=== PATIENT | female | born 2000 | race Caucasian/White ===

== ENCOUNTER 2020-06-06 05:02 | Emergency (ER) | payer OTHER ==
--- NOTE | 2020-06-06 05:28 | EDM.PDOC ---
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 She has been vomiting for 2 days and started Zofran by her doctor. She is 6 weeks and has had an ultrasound demonstrating it is intrauterine. The patient took her Zofran at 3 AM today but continues to vomit despite that. The ODT formulation. Patient denies orthostatic symptoms decreased urine output or lightheadedness. Review of systems: As per history of present illness and below otherwise all systems reviewed and negative. Past medical history: As per history of present illness and as reviewed below otherwise noncontributory. Surgical history: As per history of present illness and as reviewed below otherwise noncontributory. Social history: No reported history of drug or alcohol abuse. Family history: As per history of present illness and as reviewed below otherwise noncontributory. Physical exam: Constitutional - well developed, well-nourished and in no acute distress HEENT - normocephalic, no evidence of trauma - external nose and mouth normal - no mass in neck and no JVD - mucosae moist EYES - full EOM, PERRL, no icterus - no evidence of inflammation, injection, or drainage Respiratory - no respiratory distress, equal bilateral expansion, lungs clear to auscultation and no abnormal lung sounds Cardiovascular - Regular Rhythm with S1 and S2 appreciated and no murmur, gallop or rub. GI - abdomen soft without distension or organomegaly - normal bowel sounds - no guard or rebound Musculoskeletal no gross deformity of long bones or joints - no tenderness, swelling or edema Neurologic - Alert and oriented times four - CN II-XII grossly intact - motor sensory and coordination symmetrically normal Psychiatric - appropriate mood and affect with normal thought content Hematologic - No petechiae or purpura - mucosa appropriate color and sclera not pale - normal nail bed color and refill Integument - no rash or evidence of trauma - normal turgor Diagnostics: [] Therapeutics: [] Impression: [] Plan: [] Definitive disposition and diagnosis as appropriate pending reevaluation and review of above. 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: Psychiatric History: Reports: Depression Hematologic History: Reports: None Immunologic History: Reports: None Oncologic (Cancer) History: Reports: None Dermatologic History: Reports: None - Infectious Disease History Infectious Disease History: Reports: Mononucleosis - Past Surgical History Head Surgeries/Procedures: Reports: None HEENT Surgical History: Reports: Tonsillectomy Musculoskeletal Surgical History: Reports: Arthroscopic Knee Social & Family History - Tobacco Use Tobacco Use Status *Q: Never Tobacco User - Recreational Drug Use Recreational Drug Use: No ED ROS GENERAL - Review of Systems Review Of Systems: Comprehensive ROS is negative, except as noted in HPI. ED EXAM, GENERAL - Physical Exam Exam: See Below Free Text/Narrative:: My physical exam is in the HPI Course - Vital Signs Text/Narrative:: 0616 hrs. the patient felt better and tried p.o. Her labs indicate dehydration. She does have some nitrite and leuk esterase so a culture will be sent on the urine to be followed by her doctor. 40 4 AM the patient took p.o. she feels better after liter fluids and she will be discharged in satisfactory condition. Last Recorded V/S: Last Vital Signs Temp 36.0 C L 06/06/20 05:17 Pulse 100 06/06/20 05:17 Resp 18 06/06/20 05:17 BP 129/74 06/06/20 05:17 Pulse Ox 96 06/06/20 05:17 - Orders/Labs/Meds Orders: Active Orders 24 hr Category Date Time Status CULTURE URINE [RM] Stat Lab 06/06/20 06:09 Ordered Sodium Chloride 0.9% [Saline Flush] Med 06/06/20 05:33 Active 10 ml FLUSH ASDIRECTED PRN Sodium Chloride 0.9% [Saline Flush] Med 06/06/20 05:33 Active 2.5 ml FLUSH ASDIRECTED PRN Saline Lock Insert [OM.PC] Stat Oth 06/06/20 05:33 Ordered Medication Orders Sodium Chloride (Saline Flush) 10 ml FLUSH ASDIRECTED PRN PRN Reason: Keep Vein Open Sodium Chloride (Saline Flush) 2.5 ml FLUSH ASDIRECTED PRN PRN Reason: Keep Vein Open Labs: Laboratory Tests 06/06/20 Range/Units 05:14 Urine Color YELLOW Urine Appearance SLT CLOUDY Urine pH 5.5 (5.0-8.0) Ur Specific [place] >= 1.030 (1.001-1.035) Urine Protein NEGATIVE (NEGATIVE) mg/dL Urine Glucose (UA) NEGATIVE (NEGATIVE) mg/dL Urine Ketones 15 H (NEGATIVE) mg/dL Urine Occult Blood NEGATIVE (NEGATIVE) Urine Nitrite POSITIVE H (NEGATIVE) Urine Bilirubin SMALL H (NEGATIVE) Urine Ictotest NEGATIVE Urine Urobilinogen 0.2 (<2.0) EU/dL Ur Leukocyte Esterase NEGATIVE (NEGATIVE) Urine RBC 0-1 (0-2/HPF) Urine WBC 4-7 (0-5/HPF) Ur Epithelial Cells MODERATE (NONE-FEW) Amorphous Sediment LIGHT (NEGATIVE) Urine Bacteria FEW (NEGATIVE) Urine Mucus LIGHT (NONE-MOD) Meds: Medications Generic Name Dose Route Start Last Admin Trade Name Freq PRN Reason Stop Dose Admin Sodium Chloride 10 ml 06/06/20 05:33 Saline Flush FLUSH ASDIRECTED PRN Keep Vein Open Sodium Chloride 2.5 ml 06/06/20 05:33 Saline Flush FLUSH ASDIRECTED PRN Keep Vein Open Discontinued Medications Generic Name Dose Route Start Last Admin Trade Name Freq PRN Reason Stop Dose Admin Sodium Chloride 1,000 mls @ 999 mls/hr 06/06/20 05:34 06/06/20 05:47 Normal Saline IV 06/06/20 06:34 999 mls/hr .BOLUS ONE Administration Metoclopramide HCl 10 mg 06/06/20 05:33 06/06/20 05:48 Reglan IVPUSH 06/06/20 05:34 10 mg ONETIME ONE Administration Departure - Departure Time of Disposition: 06:45 Disposition: Home, Self-Care 01 Condition: Good Clinical Impression: Dehydration, Hyperemesis gravidarum - Discharge Information Prescriptions: Metoclopramide HCl [Reglan] 10 mg PO Q8HR PRN #14 tablet PRN Reason: Nausea/Vomiting Instructions: Hyperemesis Gravidarum, Dehydration, Adult, [id number] Referrals: PCP,None [Primary Care Provider] - Forms: ED Department Discharge Additional Instructions: There was a suggestion you might have a urinary tract infection. A culture was sent to be followed by your doctor. [facility] [address] [address] [facility] [address] [place] [id number] The following information is given to patients seen in the emergency department who are being discharged to home. This information is to outline your options for follow-up care. We provide all patients seen in our emergency department with a follow-up referral. The need for follow-up, as well as the timing and circumstances, are variable depending upon the specifics of your emergency department visit. If you don't have a primary care physician on staff, we will provide you with a referral. We always advise you to contact your personal physician following an emergency department visit to inform them of the circumstance of the visit and for follow-up with them and/or the need for any referrals to a consulting specialist. The emergency department will also refer you to a specialist when appropriate. This referral assures that you have the opportunity for follow-up care with a specialist. All of these measure are taken in an effort to provide you with optimal care, which includes your follow-up. Under all circumstances we always encourage you to contact your private physician who remains a resource for coordinating your care. When calling for follow-up care, please make the office aware that this follow-up is from your recent emergency room visit. If for any reason you are refused follow-up, please contact the [facility] Emergency Department at and asked to speak to the emergency department charge nurse. Sepsis Event Note (ED) - Evaluation Sepsis Screening Result: No Definite Risk - Focused Exam Vital Signs: Vital Signs Temp Pulse Resp BP Pulse Ox 06/06/20 05:17 36.0 C L 100 18 129/74 96 - My Orders Last 24 Hours: My Active Orders 06/06/20 05:33 Sodium Chloride 0.9% [Saline Flush] 10 ml FLUSH ASDIRECTED PRN Sodium Chloride 0.9% [Saline Flush] 2.5 ml FLUSH ASDIRECTED PRN Saline Lock Insert [OM.PC] Stat 06/06/20 06:09 CULTURE URINE [RM] Stat - Assessment/Plan Last 24 Hours: My Active Orders 06/06/20 05:33 Sodium Chloride 0.9% [Saline Flush] 10 ml FLUSH ASDIRECTED PRN Sodium Chloride 0.9% [Saline Flush] 2.5 ml FLUSH ASDIRECTED PRN Saline Lock Insert [OM.PC] Stat 06/06/20 06:09 CULTURE URINE [RM] Stat
[2020-06-06] MEDS ORDERED: Sodium Chloride 0.9% 10 ML Syringe FLUSH PRN (05:33)
[2020-06-06] MEDS ORDERED: Metoclopramide 10 MG/2 ML SDV IVPUSH ONE (05:33)
[2020-06-06] MEDS ORDERED: Sodium Chloride 0.9% 2.5 ML Syringe FLUSH PRN (05:33)
[2020-06-06] MEDS ORDERED: Sodium Chloride 0.9% 1,000 ML IV ONE (05:34)
== END 2020-06-06 06:53 | disposition home or self-care (01) ==
LOC: MW.ED 05:02
DX: O21.1 Hyperemesis gravidarum with metabolic disturbance (principal); E86.0 Dehydration; Z88.0 Allergy status to penicillin; Z3A.01 Less than 8 weeks gestation of pregnancy
CPT/HCPCS: 81001; 87086; 96374; 99284; J2765; J7030; 99283

== ENCOUNTER 2021-01-13 01:07 | Inpatient (IN) | payer OTHER ==
[2021-01-13] MEDS ORDERED: Lidocaine 1% 50 ML MDV INJECT PRN (01:29)
[2021-01-13] MEDS ORDERED: Nalbuphine 10 MG/1 ML Vial IVPUSH PRN (01:29)
[2021-01-13] MEDS ORDERED: Sodium Chloride 0.9% 10 ML Syringe FLUSH PRN (01:29)
[2021-01-13] MEDS ORDERED: Sodium Chloride 0.9% 10 ML SDV IV PRN (01:29)
[2021-01-13] MEDS ORDERED: Sodium Chloride 0.9% 2.5 ML Syringe FLUSH PRN (01:29)
[2021-01-13] MEDS ORDERED: Butorphanol 1 MG/ML SDV IVPUSH PRN (01:29)
[2021-01-13] MEDS ORDERED: Water For Irrigation,Sterile 1,000 ML Container IRR PRN (01:29)
[2021-01-13] MEDS ORDERED: Carboprost Tromethamine 250 MCG/1 ML Amp IM PRN (01:29)
[2021-01-13] MEDS ORDERED: Misoprostol 200 MCG Tab PO PRN (01:29)
[2021-01-13] MEDS ORDERED: Methylergonovine 0.2 MG/1 ML Amp IM PRN (01:29)
[2021-01-13] MEDS ORDERED: Tranexamic Acid 1,000 MG in Sodium Chloride 0.9% 100 ML IV PRN (01:29)
[2021-01-13] MEDS ORDERED: Oxytocin/0.9 % Sodium Chloride 30 UNIT/500 ML BAG IV SCH ×2 (01:30→01:45)
[2021-01-13] MEDS ORDERED: Misoprostol 25 MCG (1/4 of 100 MCG) Tab VAG PRN (01:31)
[2021-01-13] MEDS ORDERED: Terbutaline 1 MG/ML SDV SUBCUT PRN (01:31)
[2021-01-13] MEDS: Misoprostol 25 MCG (1/4 of 100 MCG) Tab PO SCH ×5 (02:08→23:08)
[2021-01-13] MEDS: Misoprostol 25 MCG (1/4 of 100 MCG) Tab VAG PRN ×2 (06:18→11:16)
[2021-01-13] MEDS ORDERED: Ondansetron 4 MG/2 ML SDV IVPUSH PRN (08:38)
[2021-01-13] MEDS: Ondansetron 4 MG/2 ML SDV ONE (08:45)
[2021-01-13] MEDS: Lactated Ringers 1,000 ML IV SCH ×3 (11:15→18:30)
--- NOTE | 2021-01-13 12:32 | PCM.LDHP ---
L&D History of Present Illness - General Date of Service: 01/13/21 Admit Problem/Dx: Patient Status Order with Admit Dx/Problem 01/13/21 01:00 Patient Status [ADT] Routine Admission Diagnosis/Problem Admission Diagnosis/Problem 01/13/21 12:26 Peggy is a 21 yo at 39+3 weeks gestation (AYDE(US) 01/17/2021) that presents to L&D today for primary elective IOL. Patient seen in office 01/11/2021, RBAs of IOL and mode of cervical ripening (cytotec) discussed in office, consents signed. Reports adequate movement. Denies naomy vaginal bleeding at this time. A pos, RI, GBS neg. EFW via [place] 7+ lbs. Pertinent medical history includes: chlamydia (CRISTAL and 36-wk screen neg); obesity; anxiety, depression. Ax: penicillins. Medications: PNV. Patient has no other complaints or concerns at this time and desires to continue with elective IOL. Source of Information: Patient History Limitations: Reports: No Limitations - History of Present Illness Pain Score: 8 Improves with: Reports: None Worsens with: Reports: None Associated Symptoms: Reports: N - Related Data Allergies/Adverse Reactions: Allergies Allergy/AdvReac Type Severity Reaction Status Date / Time Penicillins Allergy Other Verified 01/13/21 01:28 Home Medications: Home Meds Metoclopramide HCl [Reglan] 10 mg PO Q8HR PRN #14 tablet 06/06/20 [Rx] Ondansetron [Zofran ODT] 4 mg PO ASDIRECTED 06/06/20 [History] Past Medical History - Past Health History Medical/Surgical History: Denies Medical/Surgical History Cardiovascular History: Reports: None Respiratory History: Reports: None Gastrointestinal History: Reports: None 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 Psychiatric History: Reports: Depression Hematologic History: Reports: None Immunologic History: Reports: None Oncologic (Cancer) History: Reports: None Dermatologic History: Reports: None - Infectious Disease History Infectious Disease History: Reports: Mononucleosis - Past Surgical History Head Surgeries/Procedures: Reports: None HEENT Surgical History: Reports: Tonsillectomy Musculoskeletal Surgical History: Reports: Arthroscopic Knee Social & Family History - Tobacco Use Tobacco Use Status *Q: Never Tobacco User Second Hand Smoke Exposure: No - Caffeine Use Caffeine Use: Reports: Soda - Recreational Drug Use Recreational Drug Use: No H&P Review of Systems - Review of Systems: Review Of Systems: Comprehensive ROS is negative, except as noted in HPI. General: Reports: No Symptoms HEENT: Reports: No Symptoms Pulmonary: Reports: No Symptoms Cardiovascular: Reports: No Symptoms Gastrointestinal: Reports: No Symptoms Genitourinary: Reports: No Symptoms Musculoskeletal: Reports: No Symptoms Skin: Reports: No Symptoms Psychiatric: Reports: No Symptoms Neurological: Reports: No Symptoms Hematologic/Lymphatic: Reports: No Symptoms Immunologic: Reports: No Symptoms L&D Exam - Exam Exam: See Below - Vital Signs Vital Signs: VSS/afebrile. See flowsheet. Weight: 208 lb - OB Specific Fundal Height In cm: 39 Contraction Duration (sec): 60-90 Contraction Frequency (min): 1-3 Contraction Intensity: Moderate Movement: Active Heart Tones: Present Heart Tones per Min: 145 Heart Rate (FHR) Variability: Moderate (6-25 bmp) Presentation: Vertex - Saucedo Score Saucedo Score Cervix Position: Posterior Saucedo Score Consistency: Soft Saucedo Score Effacement: 31-50% Saucedo Score Dilation: 1-2 cm Saucedo Score 's Station: -3 Saucedo Score Total: 4 - Exam General: Alert, Oriented, Cooperative, Mild Distress HEENT: Conjunctiva Clear, Hearing Intact, Mucosa Moist & Gerlach, Posterior Pharynx Clear, TMs Clear, PERRLA Neck: Supple, Trachea Midline Lungs: Clear to Auscultation, Normal Respiratory Effort Cardiovascular: Regular Rate, Regular Rhythm GI/Abdominal Exam: Normal Bowel Sounds, Soft, Non-Tender, No Organomegaly, No Distention Rectal Exam: Deferred Genitourinary: Normal external exam, Normal bimanual exam, Normal speculum exam, Enlarged uterus (Gravid uterus) Back Exam: Normal Inspection, Full Range of Motion Extremities: Normal Inspection, Normal Range of Motion, Non-Tender, No Pedal Edema, Normal Capillary Refill Skin: Warm, Dry, Intact Neurological: Cranial Nerves Intact, Reflexes Equal Bilateral Psychiatric: Alert, Normal Affect, Normal Mood - Patient Data Lab Results Last 24 hrs: Laboratory Results - last 24 hr 01/13/21 01/13/21 01/13/21 Range/Units 01:25 01:25 01:30 WBC 9.40 (4.0-11.0) K/uL RBC 3.83 L (4.30-5.90) M/uL Hgb 11.8 L (12.0-16.0) g/dL Hct 34.8 L (36.0-46.0) % MCV 90.9 (80.0-98.0) fL MCH 30.8 (27.0-32.0) pg MCHC 33.9 (31.0-37.0) g/dL RDW Std Deviation 42.7 (28.0-62.0) fl RDW Coeff of Cedric 13 (11.0-15.0) % Plt Count 168 (150-400) K/uL MPV 12.10 H (7.40-12.00) fL SARS-CoV-2 RNA (ANJALI) NEGATIVE (NEGATIVE) Blood Type A POSITIVE Antibody Screen NEGATIVE Result Diagrams: 01/13/21 01:25 - Problem List (1) Encounter for elective induction of labor SNOMED Code(s): 121841817 ICD Code: Z34.90 - ENCNTR FOR SUPRVSN OF NORMAL , UNSP, UNSP TRIMESTER Status: Acute Current Visit: Yes Problem List Initiated/Reviewed/Updated: Yes Orders Last 24hrs: Active Orders 24 hr Category Date Time Status Patient Status [ADT] Routine ADT 01/13/21 01:00 Active Communication Order [RC] ASDIRECTED Care 01/13/21 01:32 Active Communication Order [RC] ASDIRECTED Care 01/13/21 01:32 Active Heart Tones [RC] CONTINUOUS Care 01/13/21 01:29 Active Non Stress Test [RC] PER UNIT ROUTINE Care 01/13/21 01:29 Active May Shower [RC] ASDIRECTED Care 01/13/21 01:29 Active Notify Provider [RC] PRN Care 01/13/21 01:29 Active Notify Provider [RC] PRN Care 01/13/21 01:32 Active Notify Provider [RC] PRN Care 01/13/21 01:32 Active Notify Provider [RC] STAT Care 01/13/21 01:32 Active Up ad Cherelle [RC] ASDIRECTED Care 01/13/21 01:29 Active Vaginal Exam [RC] PRN Care 01/13/21 01:29 Active Vaginal Exam [RC] PRN Care 01/13/21 01:32 Active Vital Signs [RC] PER UNIT ROUTINE Care 01/13/21 01:29 Active RPR (SYPHILIS SERO) W/ RFLX [REF] Routine Lab 01/13/21 01:25 Received Butorphanol [Stadol] Med 01/13/21 01:29 Active 1 mg IVPUSH Q1H PRN Carboprost Tromethamine [Hemabate DS] Med 01/13/21 01:29 Active 250 mcg IM ASDIRECTED PRN Lactated Ringers [Ringers, Lactated] 1,000 ml Med 01/13/21 01:30 Active IV ASDIRECTED Lidocaine 1% [Xylocaine 1%] Med 01/13/21 01:29 Active 50 ml INJECT ONETIME PRN Methylergonovine [Methergine] Med 01/13/21 01:29 Active 0.2 mg IM ASDIRECTED PRN Nalbuphine [Nubain] Med 01/13/21 01:29 Active 10 mg IVPUSH Q1H PRN Ondansetron [Zofran] Med 01/13/21 08:38 Active 4 mg IVPUSH Q6H PRN Oxytocin/0.9 % Sodium Chloride [Oxytocin 30 Unit/500 ML Med 01/13/21 01:30 Active -NS] 30 unit in 500 ml IV TITRATE Oxytocin/0.9 % Sodium Chloride [Oxytocin 30 Unit/500 ML Med 01/13/21 01:45 Active -NS] 30 unit in 500 ml IV TITRATE Sodium Chloride 0.9% [Normal Saline] Med 01/13/21 01:29 Active 10 ml IV ASDIRECTED PRN Sodium Chloride 0.9% [Saline Flush] Med 01/13/21 01:29 Active 10 ml FLUSH ASDIRECTED PRN Sodium Chloride 0.9% [Saline Flush] Med 01/13/21 01:29 Active 2.5 ml FLUSH ASDIRECTED PRN Terbutaline [Brethine] Med 01/13/21 01:31 Active 0.25 mg SUBCUT ASDIRECTED PRN Tranexamic Acid [Cyklokapron] 1,000 mg Med 01/13/21 01:29 Active Sodium Chloride 0.9% [Normal Saline] 100 ml IV ONETIME Water For Irrigation,Sterile [Sterile Water for Med 01/13/21 01:29 Active Irrigation] 1,000 ml IRR ASDIRECTED PRN miSOPROStoL [Cytotec] Med 01/13/21 01:29 Active 200 mcg PO ONETIME PRN miSOPROStoL [Cytotec] Med 01/13/21 02:00 Active 25 mcg PO Q4H miSOPROStoL [Cytotec] Med 01/13/21 01:31 Active 25 mcg VAG ONETIME PRN miSOPROStoL [Cytotec] Med 01/13/21 01:31 Active 25 mcg VAG Q4H PRN Scalp Electrode [WOMSER] Per Unit Routine Oth 01/13/21 01:29 Ordered Medication Administration Instruction [OM.PC] Q3H Oth 01/13/21 01:45 Ordered Peripheral IV Insertion Adult [OM.PC] Routine Oth 01/13/21 01:29 Ordered Resuscitation Status Routine Resus Stat 01/13/21 01:29 Ordered Medication Orders Butorphanol Tartrate (Butorphanol 1 Mg/Ml Sdv) 1 mg IVPUSH Q1H PRN PRN Reason: Pain (severe 7-10) Last Admin: 01/13/21 11:23 Dose: 1 mg Documented by: HUMZA Carboprost Tromethamine (Carboprost Tromethamine 250 Mcg/1 Ml Amp) 250 mcg IM ASDIRECTED PRN PRN Reason: Post Hemorrhage Oxytocin/Sodium Chloride (Oxytocin 30 Unit/500 Ml-Ns) 30 unit in 500 mls @ 500 mls/hr IV TITRATE [facility] Tranexamic Acid 1,000 mg/ (Sodium Chloride) 110 mls @ 660 mls/hr IV ONETIME PRN PRN Reason: Bleeding Lactated Ringer's (Ringers, Lactated) 1,000 mls @ 150 mls/hr IV ASDIRECTED ARA Last Admin: 01/13/21 11:15 Dose: 150 mls/hr Documented by: HUMZA Oxytocin/Sodium Chloride (Oxytocin 30 Unit/500 Ml-Ns) 30 unit in 500 mls @ 2 mls/hr IV TITRATE [facility]; Protocol Lidocaine HCl (Lidocaine 1% 50 Ml Mdv) 50 ml INJECT ONETIME PRN PRN Reason: Laceration repair Methylergonovine Maleate (Methylergonovine 0.2 Mg/1 Ml Amp) 0.2 mg IM ASDIRECTED PRN PRN Reason: Post Hemorrhage Misoprostol (Misoprostol 200 Mcg Tab) 200 mcg PO ONETIME PRN PRN Reason: Post Hemorrhage Misoprostol (Misoprostol 25 Mcg (1/4 Of 100 Mcg) Tab) 25 mcg VAG ONETIME PRN PRN Reason: Cervical Ripening Last Admin: 01/13/21 02:07 Dose: 25 mcg Documented by: ELSA Misoprostol (Misoprostol 25 Mcg (1/4 Of 100 Mcg) Tab) 25 mcg VAG Q4H PRN PRN Reason: Cervical Ripening Last Admin: 01/13/21 11:16 Dose: 25 mcg Documented by: Admin: 01/13/21 06:18 Dose: 25 mcg Documented by: ELSA Misoprostol (Misoprostol 25 Mcg (1/4 Of 100 Mcg) Tab) 25 mcg PO Q4H ARA Last Admin: 01/13/21 11:16 Dose: 25 mcg Documented by: Admin: 01/13/21 06:18 Dose: 25 mcg Documented by: Admin: 01/13/21 02:08 Dose: 25 mcg Documented by: ELSA Nalbuphine HCl (Nalbuphine 10 Mg/1 Ml Vial) 10 mg IVPUSH Q1H PRN PRN Reason: Pain (severe 7-10) Ondansetron HCl (Ondansetron 4 Mg/2 Ml Sdv) 4 mg IVPUSH Q6H PRN PRN Reason: Nausea/Vomiting Sodium Chloride (Sodium Chloride 0.9% 10 Ml Syringe) 10 ml FLUSH ASDIRECTED PRN PRN Reason: Keep Vein Open Sodium Chloride (Sodium Chloride 0.9% 2.5 Ml Syringe) 2.5 ml FLUSH ASDIRECTED PRN PRN Reason: Keep Vein Open Sodium Chloride (Sodium Chloride 0.9% 10 Ml Sdv) 10 ml IV ASDIRECTED PRN PRN Reason: IV Use Sterile Water (Water For Irrigation,Sterile 1,000 Ml Container) 1,000 ml IRR ASDIRECTED PRN PRN Reason: delivery Terbutaline Sulfate (Terbutaline 1 Mg/Ml Sdv) 0.25 mg SUBCUT ASDIRECTED PRN PRN Reason: Tacysystole Assessment/Plan Comment:: Admit for observation in anticipation of of term viable . FHR Cat I. Spontaneous contractions noted. Expectant management, reassess cervical dilation ~1030 am. If no change has been make, may administer cytotec per orders. May ambulate and hydrotherapy as desired after reactive NST achieved; repeat NST per orders. May receive epidural if desired between 5+ cm. See new orders. Dr. Mondragon notified and agreeable with POC.
[2021-01-13] MEDS ORDERED: Ropivacaine HCl/PF 200 ML ONE (13:14)
[2021-01-13] MEDS ORDERED: Bupivacaine 0.25% 10 ML SDV ONE (13:15)
--- NOTE | 2021-01-13 13:42 | PCM.PREANE ---
Preanesthetic Assessment - Procedure Proposed Procedure: LINDY - Anesthesia/Transfusion/Family Hx Anesthesia History: No Prior Anesthesia Family History of Anesthesia Reaction: No Transfusion History: No Prior Transfusion(s) - Review of Systems General: No Symptoms Pulmonary: No Symptoms Cardiovascular: No Symptoms Gastrointestinal: No Symptoms Neurological: No Symptoms Other: Reports: None - Physical Assessment NPO Status Date: 01/13/21 NPO Status Time: 00:00 Height: 5 ft 4 in Weight: 208 lb ASA Class: 2 Mental Status: Alert & Oriented x3 Airway Class: Mallampati = 2 Dentition: Reports: Normal Dentition ROM/Head Extension: Full Lungs: Clear to Auscultation, Normal Respiratory Effort Cardiovascular: Regular Rate, Regular Rhythm - Lab Values: Laboratory Last Values WBC 9.40 K/uL (4.0-11.0) 01/13/21 01:25 RBC 3.83 M/uL (4.30-5.90) L 01/13/21 01:25 Hgb 11.8 g/dL (12.0-16.0) L 01/13/21 01:25 Hct 34.8 % (36.0-46.0) L 01/13/21 01:25 MCV 90.9 fL (80.0-98.0) 01/13/21 01:25 MCH 30.8 pg (27.0-32.0) 01/13/21 01:25 MCHC 33.9 g/dL (31.0-37.0) 01/13/21 01:25 RDW Std Deviation 42.7 fl (28.0-62.0) 01/13/21 01:25 RDW Coeff of Cedric 13 % (11.0-15.0) 01/13/21 01:25 Plt Count 168 K/uL (150-400) 01/13/21 01:25 MPV 12.10 fL (7.40-12.00) H 01/13/21 01:25 SARS-CoV-2 RNA (ANJALI) NEGATIVE (NEGATIVE) 01/13/21 01:30 Blood Type A POSITIVE 01/13/21 01:25 Antibody Screen NEGATIVE 01/13/21 01:25 - Allergies Allergies/Adverse Reactions: Allergies Allergy/AdvReac Type Severity Reaction Status Date / Time Penicillins Allergy Other Verified 01/13/21 01:28 - Blood Blood Available: Yes Product(s) Available: PRBC - Anesthesia Plan Pre-Op Medication Ordered: None - Acknowledgements Anesthesia Type Planned: Epidural Pt an Appropriate Candidate for the Planned Anesthesia: Yes Alternatives and Risks of Anesthesia Discussed w Pt/Guardian: Yes Pt/Guardian Understands and Agrees with Anesthesia Plan: Yes PreAnesthesia Questionnaire - Past Health History Medical/Surgical History: Denies Medical/Surgical History Cardiovascular History: Reports: None Respiratory History: Reports: None Gastrointestinal History: Reports: None PUMPER HEAD History: Reports: Psychiatric History: Reports: Depression Hematologic History: Reports: None Immunologic History: Reports: None Oncologic (Cancer) History: Reports: None Dermatologic History: Reports: None - Infectious Disease History Infectious Disease History: Reports: Mononucleosis - Past Surgical History Head Surgeries/Procedures: Reports: None HEENT Surgical History: Reports: Tonsillectomy Musculoskeletal Surgical History: Reports: Arthroscopic Knee - SUBSTANCE USE Tobacco Use Status *Q: Never Tobacco User Second Hand Smoke Exposure: No Recreational Drug Use History: No - HOME MEDS Home Medications: Home Meds Metoclopramide HCl [Reglan] 10 mg PO Q8HR PRN #14 tablet 06/06/20 [Rx] Ondansetron [Zofran ODT] 4 mg PO ASDIRECTED 06/06/20 [History] - CURRENT (IN HOUSE) MEDS Current Meds: Current Medications Butorphanol Tartrate (Butorphanol 1 Mg/Ml Sdv) 1 mg IVPUSH Q1H PRN PRN Reason: Pain (severe 7-10) Last Admin: 01/13/21 11:23 Dose: 1 mg Documented by: Carboprost Tromethamine (Carboprost Tromethamine 250 Mcg/1 Ml Amp) 250 mcg IM ASDIRECTED PRN PRN Reason: Post Hemorrhage Oxytocin/Sodium Chloride (Oxytocin 30 Unit/500 Ml-Ns) 30 unit in 500 mls @ 500 mls/hr IV TITRATE ARA Tranexamic Acid 1,000 mg/ (Sodium Chloride) 110 mls @ 660 mls/hr IV ONETIME PRN PRN Reason: Bleeding Lactated Ringer's (Ringers, Lactated) 1,000 mls @ 150 mls/hr IV ASDIRECTED ARA Last Infusion: 01/13/21 12:38 Dose: 999 mls/hr Documented by: Oxytocin/Sodium Chloride (Oxytocin 30 Unit/500 Ml-Ns) 30 unit in 500 mls @ 2 mls/hr IV TITRATE ARA; Protocol Lidocaine HCl (Lidocaine 1% 50 Ml Mdv) 50 ml INJECT ONETIME PRN PRN Reason: Laceration repair Methylergonovine Maleate (Methylergonovine 0.2 Mg/1 Ml Amp) 0.2 mg IM ASDIRECTED PRN PRN Reason: Post Hemorrhage Misoprostol (Misoprostol 200 Mcg Tab) 200 mcg PO ONETIME PRN PRN Reason: Post Hemorrhage Misoprostol (Misoprostol 25 Mcg (1/4 Of 100 Mcg) Tab) 25 mcg VAG ONETIME PRN PRN Reason: Cervical Ripening Last Admin: 01/13/21 02:07 Dose: 25 mcg Documented by: Misoprostol (Misoprostol 25 Mcg (1/4 Of 100 Mcg) Tab) 25 mcg VAG Q4H PRN PRN Reason: Cervical Ripening Last Admin: 01/13/21 11:16 Dose: 25 mcg Documented by: Misoprostol (Misoprostol 25 Mcg (1/4 Of 100 Mcg) Tab) 25 mcg PO Q4H ARA Last Admin: 01/13/21 11:16 Dose: 25 mcg Documented by: Nalbuphine HCl (Nalbuphine 10 Mg/1 Ml Vial) 10 mg IVPUSH Q1H PRN PRN Reason: Pain (severe 7-10) Ondansetron HCl (Ondansetron 4 Mg/2 Ml Sdv) 4 mg IVPUSH Q6H PRN PRN Reason: Nausea/Vomiting Sodium Chloride (Sodium Chloride 0.9% 10 Ml Syringe) 10 ml FLUSH ASDIRECTED PRN PRN Reason: Keep Vein Open Sodium Chloride (Sodium Chloride 0.9% 2.5 Ml Syringe) 2.5 ml FLUSH ASDIRECTED PRN PRN Reason: Keep Vein Open Sodium Chloride (Sodium Chloride 0.9% 10 Ml Sdv) 10 ml IV ASDIRECTED PRN PRN Reason: IV Use Sterile Water (Water For Irrigation,Sterile 1,000 Ml Container) 1,000 ml IRR ASDIRECTED PRN PRN Reason: delivery Terbutaline Sulfate (Terbutaline 1 Mg/Ml Sdv) 0.25 mg SUBCUT ASDIRECTED PRN PRN Reason: Tacysystole Discontinued Medications Bupivacaine HCl (Bupivacaine 0.25% 10 Ml Sdv) Confirm Administered Dose 10 ml .ROUTE .STK-MED ONE Stop: 06/25/21 13:16 Ropivacaine (Naropin 0.2%) Confirm Administered Dose 200 mls @ as directed .ROUTE .STK-MED ONE Stop: 01/13/21 13:15 Ondansetron HCl (Ondansetron 4 Mg/2 Ml Sdv) Confirm Administered Dose 4 mg .ROUTE .STK-MED ONE Stop: 01/13/21 08:31 Last Admin: 01/13/21 08:45 Dose: 4 mg Documented by: - Pre-Procedure Checklist Attending Provider Aware: Yes Chart Reviewed: Yes Consent Signed: Yes Labs Reviewed: Yes VS/FHR Reviewed: Yes Patient Identification Confirmation Method: Reports: Verbal Patient Pt an Appropriate Candidate for the Planned Anesthesia: Yes Alternatives and Risks of Anesthesia Discussed w Pt/Guardian: Yes - Procedure Procedure Start Date: 01/13/21 Procedure Start Time: 13:[address]: Reports: Blood Pressure, Heart Rate, SPO2 Functional IV: Yes Safety Measures: Reports: Patient Identified, Procedure Verified, Site Verified, Procedure Time Out Patient Position: Reports: Sitting Prep: Reports: Betadine x3 Local Anesthetic: Reports: Intradermal Wheal w Lidocaine 1% Regional Placement Level: Reports: L3-4 Needle: Reports: 17 g Touhy Approach: Reports: Midline Technique: Reports: ELSIE Plastic Syringe Parasthesia: Reports: None Fluid Obtained: Reports: None Test Dose Time: 13:22 Test Dose Medication: Reports: Lidocaine 1.5% w Epinephrine 1:200,000 Test Dose Response: Reports: Negative Loading Dose Time: 13:20 Loading Dose Medication: bupivicaine 0.25% 10cc Loading Dose Patient Position: sitting Continuous Infusion Start Time: 13:25 Continuous Infusion Medication: ropivicaine 0.2% Continuous Infusion Rate: 16 Continuous Infusion PCS Bolus Option: 4 Continuous Infusion Lockout Dose (cc/hr): 32 Patient Position Post Placement: Reports: Supline/NANCY VS and FHR Monitored in Unit Post Placement: Yes Procedure End Date: 01/13/21 Procedure End Time: 14:15
[2021-01-13] MEDS ORDERED: Ibuprofen 400 MG Tab PO PRN (20:06)
[2021-01-13] MEDS ORDERED: Acetaminophen 500 MG Tab PO PRN ×2 (20:06)
[2021-01-13] MEDS ORDERED: Lanolin 100% Cream 7 GM Tube TOP PRN (20:06)
[2021-01-13] MEDS ORDERED: Docusate Sodium 100 MG Cap PO PRN (20:06)
[2021-01-13] MEDS ORDERED: Benzocaine/Menthol 20%-0.5% Spray 78 GM Cannister TOP PRN (20:06)
[2021-01-13] MEDS ORDERED: Bisacodyl 10 MG Supp RECTAL PRN (20:06)
[2021-01-13] MEDS ORDERED: Witch Hazel Medicated Pads 40/Jar TOP PRN (20:06)
--- NOTE | 2021-01-13 20:14 | PCM.DEL ---
L & D Note - General Info Date of Service: 01/13/21 Mother's Due Date: 01/17/21 - Delivery Note Cervical Ripening Method: Misoprostil Delivery Outcome: Livebirth Delivery Method: Spontaneous Vaginal Delivery-Single Delivery Mode: Spontaneous Presentation: Vertex Nuchal Cord: Present, Reduced Anesthesia Type: Epidural Amniotic Fluid Description: Clear Laceration: None Placenta: Intact, Spontaneous Cord: 3 Vessels Estimated Blood Loss: 150 Resuscitation Needed: No Battiest: Suctioned, Stimulated Score 1 min: 8 Score 5 min: 9 Delivery Comments (Free Text/Narrative):: 21yo G1 now P1001 @ 39w 3d GA after uncomplicated elective IOL. course was unremarkable. of a live female, weight pending and Apgars 8/9. Delivered JAMIE, nuchal cord x1, reduced, Terminal meconium present. Vertex and body delivered without difficulty. Cord clamped and cut. Nose and mouth bulb suctioned; Baby placed on Mom's abdomen. Placenta delivered spontaneously, intact. Fundus firm, minimal bleeding. Placenta appears intact with 3 vessel cord. Perineum and vagina inspected small perineal and labial abrasions, not requiring repair. EBL 150cc. Hemostatic. Patient tolerated procedure well, recovering in LDR. by her side. - General Info Date of Service: 01/13/21 Admission Dx/Problem (Free Text): Patient Status Order with Admit Dx/Problem 01/13/21 01:00 Patient Status [ADT] Routine Admission Diagnosis/Problem Admission Diagnosis/Problem 01/13/21 12:26 Peggy is a 21 yo at 39+3 weeks gestation (AYDE(US) 01/17/2021) that presents to L&D today for primary elective IOL. Patient seen in office 01/11/2021, RBAs of IOL and mode of cervical ripening (cytotec) discussed in office, consents signed. Reports adequate movement. Denies naomy vaginal bleeding at this time. A pos, RI, GBS neg. EFW via [place] 7+ lbs. Pertinent medical history includes: chlamydia (CRISTAL and 36-wk screen neg); obesity; anxiety, depression. Ax: penicillins. Medications: PNV. Patient has no other complaints or concerns at this time and desires to continue with elective IOL. Subjective Update: s/p Uncomplicated vaginal delivered after elective IOL with cytotec [id number]. Mother and baby are doing well Functional Status: Reports: Pain Controlled - Review of Systems General: Reports: No Symptoms HEENT: Reports: No Symptoms Pulmonary: Reports: No Symptoms Cardiovascular: Reports: No Symptoms Gastrointestinal: Reports: No Symptoms Genitourinary: Reports: No Symptoms Musculoskeletal: Reports: No Symptoms Skin: Reports: No Symptoms Neurological: Reports: No Symptoms Psychiatric: Reports: No Symptoms - Patient Data Weight - Most Recent: 94.347 kg I&O - Last 24 Hours: Intake & Output 01/13/21 01/13/21 01/13/21 06:59 14:59 22:59 Intake Total 1000 1000 Balance 1000 1000 Lab Results Last 24 Hours: Laboratory Results - last 24 hr 01/13/21 01/13/21 01/13/21 Range/Units 01:25 01:25 01:30 WBC 9.40 (4.0-11.0) K/uL RBC 3.83 L (4.30-5.90) M/uL Hgb 11.8 L (12.0-16.0) g/dL Hct 34.8 L (36.0-46.0) % MCV 90.9 (80.0-98.0) fL MCH 30.8 (27.0-32.0) pg MCHC 33.9 (31.0-37.0) g/dL RDW Std Deviation 42.7 (28.0-62.0) fl RDW Coeff of Cedric 13 (11.0-15.0) % Plt Count 168 (150-400) K/uL MPV 12.10 H (7.40-12.00) fL SARS-CoV-2 RNA (ANJALI) NEGATIVE (NEGATIVE) Blood Type A POSITIVE Antibody Screen NEGATIVE Med Orders - Current: Current Medications Acetaminophen (Acetaminophen 500 Mg Tab) 500 mg PO Q4H PRN PRN Reason: Pain (mild 1-3) Acetaminophen (Acetaminophen 500 Mg Tab) 1,000 mg PO Q4H PRN PRN Reason: Pain (mild 1-3) Benzocaine/Menthol (Benzocaine/Menthol 20%-0.5% [place] 78 Gm Cannister) 78 gm TOP ASDIRECTED PRN PRN Reason: Perineal Comfort Measure Bisacodyl (Bisacodyl 10 Mg Supp) 10 mg RECTAL ONETIME PRN PRN Reason: Constipation Butorphanol Tartrate (Butorphanol 1 Mg/Ml Sdv) 1 mg IVPUSH Q1H PRN PRN Reason: Pain (severe 7-10) Last Admin: 01/13/21 11:23 Dose: 1 mg Documented by: Carboprost Tromethamine (Carboprost Tromethamine 250 Mcg/1 Ml Amp) 250 mcg IM ASDIRECTED PRN PRN Reason: Post Hemorrhage Docusate Sodium (Docusate Sodium 100 Mg Cap) 100 mg PO Q12H PRN PRN Reason: Constipation Emollient Ointment (Lanolin 100% Cream 7 Gm Tube) 0 gm TOP ASDIRECTED PRN PRN Reason: Sore Nipples Oxytocin/Sodium Chloride (Oxytocin 30 Unit/500 Ml-Ns) 30 unit in 500 mls @ 500 mls/hr IV TITRATE ARA Tranexamic Acid 1,000 mg/ (Sodium Chloride) 110 mls @ 660 mls/hr IV ONETIME PRN PRN Reason: Bleeding Lactated Ringer's (Ringers, Lactated) 1,000 mls @ 150 mls/hr IV ASDIRECTED ARA Last Admin: 01/13/21 18:30 Dose: 150 mls/hr Documented by: Oxytocin/Sodium Chloride (Oxytocin 30 Unit/500 Ml-Ns) 30 unit in 500 mls @ 2 mls/hr IV TITRATE ARA; Protocol Ibuprofen (Ibuprofen 400 Mg Tab) 400 mg PO Q4H PRN PRN Reason: Pain (mild 1-3) Ibuprofen (Ibuprofen 800 Mg Tab) 800 mg PO Q6H PRN PRN Reason: Pain (mild 1-3) Lidocaine HCl (Lidocaine 1% 50 Ml Mdv) 50 ml INJECT ONETIME PRN PRN Reason: Laceration repair Methylergonovine Maleate (Methylergonovine 0.2 Mg/1 Ml Amp) 0.2 mg IM ASDIRECTED PRN PRN Reason: Post Hemorrhage Misoprostol (Misoprostol 200 Mcg Tab) 200 mcg PO ONETIME PRN PRN Reason: Post Hemorrhage Misoprostol (Misoprostol 25 Mcg (1/4 Of 100 Mcg) Tab) 25 mcg VAG ONETIME PRN PRN Reason: Cervical Ripening Last Admin: 01/13/21 02:07 Dose: 25 mcg Documented by: Misoprostol (Misoprostol 25 Mcg (1/4 Of 100 Mcg) Tab) 25 mcg VAG Q4H PRN PRN Reason: Cervical Ripening Last Admin: 01/13/21 11:16 Dose: 25 mcg Documented by: Misoprostol (Misoprostol 25 Mcg (1/4 Of 100 Mcg) Tab) 25 mcg PO Q4H ARA Last Admin: 01/13/21 11:16 Dose: 25 mcg Documented by: Nalbuphine HCl (Nalbuphine 10 Mg/1 Ml Vial) 10 mg IVPUSH Q1H PRN PRN Reason: Pain (severe 7-10) Ondansetron HCl (Ondansetron 4 Mg/2 Ml Sdv) 4 mg IVPUSH Q6H PRN PRN Reason: Nausea/Vomiting Sodium Chloride (Sodium Chloride 0.9% 10 Ml Syringe) 10 ml FLUSH ASDIRECTED PRN PRN Reason: Keep Vein Open Sodium Chloride (Sodium Chloride 0.9% 2.5 Ml Syringe) 2.5 ml FLUSH ASDIRECTED PRN PRN Reason: Keep Vein Open Sodium Chloride (Sodium Chloride 0.9% 10 Ml Sdv) 10 ml IV ASDIRECTED PRN PRN Reason: IV Use Sterile Water (Water For Irrigation,Sterile 1,000 Ml Container) 1,000 ml IRR ASDIRECTED PRN PRN Reason: delivery Terbutaline Sulfate (Terbutaline 1 Mg/Ml Sdv) 0.25 mg SUBCUT ASDIRECTED PRN PRN Reason: Tacysystole Witch Roberta (Witch Roberta Medicated Pads 40/Jar) 1 pad TOP ASDIRECTED PRN PRN Reason: comfort care Discontinued Medications Bupivacaine HCl (Bupivacaine 0.25% 10 Ml Sdv) Confirm Administered Dose 10 ml .ROUTE .STK-MED ONE Stop: 01/13/21 13:16 Ropivacaine (Naropin 0.2%) Confirm Administered Dose 200 mls @ as directed .ROUTE .STK-MED ONE Stop: 01/13/21 13:15 Ondansetron HCl (Ondansetron 4 Mg/2 Ml Sdv) Confirm Administered Dose 4 mg .ROUTE .STK-MED ONE Stop: 01/13/21 08:31 Last Admin: 01/13/21 08:45 Dose: 4 mg Documented by: - Exam Urinary Catheter Total Time: 0Days 5Hours General: Alert, Oriented Lungs: Normal Respiratory Effort Cardiovascular: Regular Rate GI/Abdominal Exam: Soft, Non-Tender Extremities: Normal Inspection Skin: Warm Psy/Mental Status: Alert, Normal Affect, Normal Mood - Problem List & Annotations (1) Term delivered SNOMED Code(s): 48335503, 126512656 Code(s): O80 - ENCOUNTER FOR FULL-TERM UNCOMPLICATED DELIVERY Status: Acute Current Visit: Yes - Problem List Review Problem List Initiated/Reviewed/Updated: Yes - My Orders Last 24 Hours: My Active Orders 01/13/21 01:25 RPR (SYPHILIS SERO) W/ RFLX [REF] Routine 01/13/21 01:29 Heart Tones [RC] CONTINUOUS Non Stress Test [RC] PER UNIT ROUTINE May Shower [RC] ASDIRECTED Notify Provider [RC] PRN Up ad Cherelle [RC] ASDIRECTED Vaginal Exam [RC] PRN Vital Signs [RC] PER UNIT ROUTINE Butorphanol [Stadol] 1 mg IVPUSH Q1H PRN Carboprost Tromethamine [Hemabate DS] 250 mcg IM ASDIRECTED PRN Lidocaine 1% [Xylocaine 1%] 50 ml INJECT ONETIME PRN Methylergonovine [Methergine] 0.2 mg IM ASDIRECTED PRN Nalbuphine [Nubain] 10 mg IVPUSH Q1H PRN Sodium Chloride 0.9% [Normal Saline] 10 ml IV ASDIRECTED PRN Sodium Chloride 0.9% [Saline Flush] 10 ml FLUSH ASDIRECTED PRN Sodium Chloride 0.9% [Saline Flush] 2.5 ml FLUSH ASDIRECTED PRN Tranexamic Acid [Cyklokapron] 1,000 mg Sodium Chloride 0.9% [Normal Saline] 100 ml IV ONETIME Water For Irrigation,Sterile [Sterile Water for Irrigation] 1,000 ml IRR ASDIRECTED PRN miSOPROStoL [Cytotec] 200 mcg PO ONETIME PRN Scalp Electrode [WOMSER] Per Unit Routine Peripheral IV Insertion Adult [OM.PC] Routine Resuscitation Status Routine 01/13/21 01:30 Lactated Ringers [Ringers, Lactated] 1,000 ml IV ASDIRECTED Oxytocin/0.9 % Sodium Chloride [Oxytocin 30 Unit/500 ML-NS] 30 unit in 500 ml IV TITRATE 01/13/21 01:31 Terbutaline [Brethine] 0.25 mg SUBCUT ASDIRECTED PRN miSOPROStoL [Cytotec] 25 mcg VAG ONETIME PRN miSOPROStoL [Cytotec] 25 mcg VAG Q4H PRN 01/13/21 01:32 Communication Order [RC] ASDIRECTED Communication Order [RC] ASDIRECTED Notify Provider [RC] PRN Notify Provider [RC] PRN Notify Provider [RC] STAT Vaginal Exam [RC] PRN 01/13/21 01:45 Oxytocin/0.9 % Sodium Chloride [Oxytocin 30 Unit/500 ML-NS] 30 unit in 500 ml IV TITRATE Medication Administration Instruction [OM.PC] Q3H 01/13/21 02:00 miSOPROStoL [Cytotec] 25 mcg PO Q4H 01/13/21 08:38 Ondansetron [Zofran] 4 mg IVPUSH Q6H PRN 01/13/21 20:06 Patient Status [ADT] Routine May Shower [RC] ASDIRECTED Up ad Cherelle [RC] ASDIRECTED Vital Signs [RC] PER UNIT ROUTINE Acetaminophen [Tylenol Extra Strength] 1,000 mg PO Q4H PRN Acetaminophen [Tylenol Extra Strength] 500 mg PO Q4H PRN Benzocaine/Menthol [Dermoplast Pain Relief 20%-0.5% [place]] 78 gm TOP ASDIRECTED PRN Docusate Sodium [Colace] 100 mg PO Q12H PRN Ibuprofen [Motrin] 400 mg PO Q4H PRN Ibuprofen [Motrin] 800 mg PO Q6H PRN Lanolin [Lansinoh HPA] See Dose Instructions TOP ASDIRECTED PRN bisacodyL [Dulcolax] 10 mg RECTAL ONETIME PRN witch Roberta [Tucks] 1 pad TOP ASDIRECTED PRN Assess Lochia [WOMSER] Per Unit Routine Assess Uterine Involution [WOMSER] Per Unit Routine Peripheral IV Discontinue [OM.PC] Routine 01/14/21 05:11 HEMOGLOBIN/HEMATOCRIT,HH [HEME] Timed - Plan Plan:: Routine care
[2021-01-13] MEDS: Ibuprofen 800 MG Tab PO PRN (20:34)
[2021-01-14] MEDS: Ibuprofen 800 MG Tab PO PRN ×3 (07:05→20:31)
--- NOTE | 2021-01-14 12:16 | PCM.POSTAN ---
POST ANESTHESIA ASSESSMENT - MENTAL STATUS Mental Status: Alert, Oriented - VITAL SIGNS Vital Signs: Last Vital Signs Temp 97.1 F 01/14/21 07:18 Pulse 85 01/14/21 03:37 Resp 15 01/14/21 07:18 BP 118/76 01/14/21 07:18 Pulse Ox 97 01/14/21 07:18 - RESPIRATORY Respiratory Status: Respiratory Rate WNL, Airway Patent, O2 Saturation Stable - CARDIOVASCULAR CV Status: Pulse Rate WNL, Blood Pressure Stable - GASTROINTESTINAL GI Status: No Symptoms - POST OP HYDRATION Hydration Status: Adequate & Stable
--- NOTE | 2021-01-14 12:16 | PCM48HPAN ---
Post Anesthesia Note - EVALUATION WITHIN 48HRS OF ANESTHETIC Vital Signs in Normal Range: Yes Patient Participated in Evaluation: Yes Respiratory Function Stable: Yes Airway Patent: Yes Cardiovascular Function Stable: Yes Hydration Status Stable: Yes Pain Control Satisfactory: Yes Nausea and Vomiting Control Satisfactory: Yes Mental Status Recovered: Yes Vital Signs: Last Vital Signs Temp 97.1 F 01/14/21 07:18 Pulse 85 01/14/21 03:37 Resp 15 01/14/21 07:18 BP 118/76 01/14/21 07:18 Pulse Ox 97 01/14/21 07:18
--- NOTE | 2021-01-14 13:00 | PCM.DCSUM1 ---
Discharge Summary - Hospital Course Free Text/Narrative:: 21yo G1 now P1001 s/p @ 39w 3d GA after uncomplicated elective IOL. course was unremarkable. Mom and baby have been doing well. Diagnosis: Stroke: No - Discharge Data Discharge Date: 01/14/21 Discharge Disposition: Home, Self-Care 01 Condition: Good - Referral to Home Health Primary Care Physician: PCP None - Discharge Diagnosis/Problem(s) (1) Term delivered SNOMED Code(s): 17361059, [id number] ICD Code: O80 - ENCOUNTER FOR FULL-TERM UNCOMPLICATED DELIVERY Status: Acute - Patient Instructions Diet: Regular Diet as Tolerated - Discharge Plan *PRESCRIPTION DRUG MONITORING PROGRAM REVIEWED*: Not Applicable *COPY OF PRESCRIPTION DRUG MONITORING REPORT IN PATIENT SARAH: Not Applicable Home Medications: Home Meds Metoclopramide HCl [Reglan] 10 mg PO Q8HR PRN #14 tablet 06/06/20 [Rx] Ondansetron [Zofran ODT] 4 mg PO ASDIRECTED 06/06/20 [History] Patient Handouts: Baby Blues, Care After Vaginal Delivery Referrals: [facility]cal[facility]inic [Ordering Only Provider] - Nazia Valencia MD [Physician] - - Discharge Summary/Plan Comment DC Time >30 min.: Yes - General Info Date of Service: 01/14/21 Admission Dx/Problem (Free Text: Patient Status Order with Admit Dx/Problem 01/13/21 01:00 Patient Status [ADT] Routine Admission Diagnosis/Problem Admission Diagnosis/Problem 01/13/21 12:26 Peggy is a 21 yo at 39+3 weeks gestation (AYDE(US) 01/17/2021) that presents to L&D today for primary elective IOL. Patient seen in office 01/11/2021, RBAs of IOL and mode of cervical ripening (cytotec) discussed in office, consents signed. Reports adequate movement. Denies naomy vaginal bleeding at this time. A pos, RI, GBS neg. EFW via [place] 7+ lbs. Pertinent medical history includes: chlamydia (CRISTAL and 36-wk screen neg); obesity; anxiety, depression. Ax: penicillins. Medications: PNV. Patient has no other complaints or concerns at this time and desires to continue with elective IOL. Subjective Update: s/p Uncomplicated vaginal delivered after elective IOL with cytotec [id number]. Mother and baby are doing well Functional Status: Reports: Pain Controlled - Review of Systems General: Reports: No Symptoms HEENT: Reports: No Symptoms Pulmonary: Reports: No Symptoms Cardiovascular: Reports: No Symptoms Gastrointestinal: Reports: No Symptoms Genitourinary: Reports: No Symptoms Musculoskeletal: Reports: No Symptoms Skin: Reports: No Symptoms Neurological: Reports: No Symptoms Psychiatric: Reports: No Symptoms - Patient Data Vitals - Most Recent: Last Vital Signs Temp 97.1 F 01/14/21 07:18 Pulse 85 01/14/21 03:37 Resp 15 01/14/21 07:18 BP 118/76 01/14/21 07:18 Pulse Ox 97 01/14/21 07:18 Weight - Most Recent: 94.347 kg I&O - Last 24 hours: Intake & Output 01/13/21 01/14/21 01/14/21 22:59 06:59 14:59 Intake Total 1000 Balance 1000 Lab Results - Last 24 hrs: Laboratory Results - last 24 hr 01/14/21 Range/Units 05:00 Hgb 11.5 L (12.0-16.0) g/dL Hct 34.1 L (36.0-46.0) % Med Orders - Current: Current Medications Acetaminophen (Acetaminophen 500 Mg Tab) 500 mg PO Q4H PRN PRN Reason: Pain (mild 1-3) Acetaminophen (Acetaminophen 500 Mg Tab) 1,000 mg PO Q4H PRN PRN Reason: Pain (mild 1-3) Last Admin: 01/13/21 20:35 Dose: 1,000 mg Documented by: Benzocaine/Menthol (Benzocaine/Menthol 20%-0.5% [place] 78 Gm Cannister) 78 gm TOP ASDIRECTED PRN PRN Reason: Perineal Comfort Measure Bisacodyl (Bisacodyl 10 Mg Supp) 10 mg RECTAL ONETIME PRN PRN Reason: Constipation Butorphanol Tartrate (Butorphanol 1 Mg/Ml Sdv) 1 mg IVPUSH Q1H PRN PRN Reason: Pain (severe 7-10) Last Admin: 01/13/21 11:23 Dose: 1 mg Documented by: Carboprost Tromethamine (Carboprost Tromethamine 250 Mcg/1 Ml Amp) 250 mcg IM ASDIRECTED PRN PRN Reason: Post Hemorrhage Docusate Sodium (Docusate Sodium 100 Mg Cap) 100 mg PO Q12H PRN PRN Reason: Constipation Emollient Ointment (Lanolin 100% Cream 7 Gm Tube) 0 gm TOP ASDIRECTED PRN PRN Reason: Sore Nipples Oxytocin/Sodium Chloride (Oxytocin 30 Unit/500 Ml-Ns) 30 unit in 500 mls @ 500 mls/hr IV TITRATE [facility] Last Infusion: 01/13/21 20:07 Dose: 150 mls/hr Documented by: Tranexamic Acid 1,000 mg/ (Sodium Chloride) 110 mls @ 660 mls/hr IV ONETIME PRN PRN Reason: Bleeding Lactated Ringer's (Ringers, Lactated) 1,000 mls @ 150 mls/hr IV ASDIRECTED ARA Last Admin: 01/13/21 18:30 Dose: 150 mls/hr Documented by: Oxytocin/Sodium Chloride (Oxytocin 30 Unit/500 Ml-Ns) 30 unit in 500 mls @ 2 mls/hr IV TITRATE [facility]; Protocol Ibuprofen (Ibuprofen 400 Mg Tab) 400 mg PO Q4H PRN PRN Reason: Pain (mild 1-3) Ibuprofen (Ibuprofen 800 Mg Tab) 800 mg PO Q6H PRN PRN Reason: Pain (mild 1-3) Last Admin: 01/14/21 07:05 Dose: 800 mg Documented by: Lidocaine HCl (Lidocaine 1% 50 Ml Mdv) 50 ml INJECT ONETIME PRN PRN Reason: Laceration repair Methylergonovine Maleate (Methylergonovine 0.2 Mg/1 Ml Amp) 0.2 mg IM ASDIRECT ED PRN PRN Reason: Post Hemorrhage Misoprostol (Misoprostol 200 Mcg Tab) 200 mcg PO ONETIME PRN PRN Reason: Post Hemorrhage Misoprostol (Misoprostol 25 Mcg (1/4 Of 100 Mcg) Tab) 25 mcg VAG ONETIME PRN PRN Reason: Cervical Ripening Last Admin: 01/13/21 02:07 Dose: 25 mcg Documented by: Misoprostol (Misoprostol 25 Mcg (1/4 Of 100 Mcg) Tab) 25 mcg VAG Q4H PRN PRN Reason: Cervical Ripening Last Admin: 01/13/21 11:16 Dose: 25 mcg Documented by: Nalbuphine HCl (Nalbuphine 10 Mg/1 Ml Vial) 10 mg IVPUSH Q1H PRN PRN Reason: Pain (severe 7-10) Ondansetron HCl (Ondansetron 4 Mg/2 Ml Sdv) 4 mg IVPUSH Q6H PRN PRN Reason: Nausea/Vomiting Sodium Chloride (Sodium Chloride 0.9% 10 Ml Syringe) 10 ml FLUSH ASDIRECTED PRN PRN Reason: Keep Vein Open Sodium Chloride (Sodium Chloride 0.9% 2.5 Ml Syringe) 2.5 ml FLUSH ASDIRECTED PRN PRN Reason: Keep Vein Open Sodium Chloride (Sodium Chloride 0.9% 10 Ml Sdv) 10 ml IV ASDIRECTED PRN PRN Reason: IV Use Sterile Water (Water For Irrigation,Sterile 1,000 Ml Container) 1,000 ml IRR ASDIRECTED PRN PRN Reason: delivery Terbutaline Sulfate (Terbutaline 1 Mg/Ml Sdv) 0.25 mg SUBCUT ASDIRECTED PRN PRN Reason: Tacysystole Witch Roberta (Witch Roberta Medicated Pads 40/Jar) 1 pad TOP ASDIRECTED PRN PRN Reason: comfort care Discontinued Medications Bupivacaine HCl (Bupivacaine 0.25% 10 Ml Sdv) Confirm Administered Dose 10 ml .ROUTE .STK-MED ONE Stop: 01/13/21 13:16 Last Admin: 01/13/21 22:48 Dose: Not Given Documented by: Ropivacaine (Naropin 0.2%) Confirm Administered Dose 200 mls @ as directed .ROUTE .STK-MED ONE Stop: 01/13/21 13:15 Last Admin: 01/13/21 22:48 Dose: Not Given Documented by: Misoprostol (Misoprostol 25 Mcg (1/4 Of 100 Mcg) Tab) 25 mcg PO Q4H [facility] Last Admin: 01/13/21 23:08 Dose: Not Given Documented by: Ondansetron HCl (Ondansetron 4 Mg/2 Ml Sdv) Confirm Administered Dose 4 mg .ROUTE .STK-MED ONE Stop: 01/13/21 08:31 Last Admin: 01/13/21 08:45 Dose: 4 mg Documented by: - Exam General: Reports: Alert, Oriented Lungs: Reports: Normal Respiratory Effort Cardiovascular: Reports: Regular Rate GI/Abdominal Exam: Soft, Non-Tender (Female) Exam: Normal External Exam Extremities: Normal Inspection, No Pedal Edema Psy/Mental Status: Reports: Alert, Normal Affect, Normal Mood
== END 2021-01-14 21:25 | disposition home or self-care (01) | DRG 807 ==
LOC: MW.OBCHECK 01:07 → MW.OB 01:08 → MW.OBCHECK 01:09 → OBSVTOIN 19:51 → MW.OB 01-14 01:33
PROVIDERS: ADMIT Obstetrics & Gynecology Obstetrics; ATTEND Obstetrics & Gynecology Obstetrics
PROC: 10E0XZZ Delivery of Products of Conception, External Approach (ICD-10-PCS; principal; 2021-01-13)
PROC: 3E0R3BZ Introduction of Anesthetic Agent into Spinal Canal, Percutaneous Approach (ICD-10-PCS; 2021-01-13)
PROC: 00HU33Z Insertion of Infusion Device into Spinal Canal, Percutaneous Approach (ICD-10-PCS; 2021-01-13)
DX: O69.81X0 Labor and delivery complicated by cord around neck, without compression, not applicable or unspecified (principal); Z37.0 Single live birth; O99.214 Obesity complicating childbirth; E66.9 Obesity, unspecified; O99.344 Other mental disorders complicating childbirth; F41.8 Other specified anxiety disorders; Z3A.39 39 weeks gestation of pregnancy; O77.0 Labor and delivery complicated by meconium in amniotic fluid
CPT/HCPCS: 36415; 51702; 59025; 59409; 85014; 85018; 85027; 86592; 86850; 86900; 86901; A9270-GY; J0595; J2405; J2590; J2795; J3490; J7120; U0002

== ENCOUNTER 2021-01-22 03:33 | Emergency (ER) | payer OTHER ==
[2021-01-22] MEDS ORDERED: Iopamidol 755 Mg/ML 100 ML Bottle IVPUSH ONE (04:02)
[2021-01-22 04:11] LABS: BLOOD UREA NITROGEN,BUN 14 mg/dL (7.0-18.0); CARBON DIOXIDE,CO2 25.7 mmol/L (21.0-32.0); CHLORIDE,CL 104 mmol/L (98-107); GLUCOSE RANDOM 105 mg/dL (74-106); LIPASE 101 U/L (73-393); POTASSIUM,K 3.7 mmol/L (3.5-5.1); SODIUM,NA 142 mmol/L (136-145)
--- NOTE | 2021-01-22 06:08 | EDM.PDOC ---
ED HPI GENERAL MEDICAL PROBLEM - General Chief Complaint: Chest Pain Stated Complaint: VOMITING CHEST PAIN BACK PAIN Time Seen by Provider: 01/22/21 03:40 - History of Present Illness INITIAL COMMENTS - FREE TEXT/NARRATIVE: CHIEF COMPLAINT(S): Upper abdominal pain radiating to back HISTORY OF PRESENT ILLNESS: This is a 21-year-old woman who delivered approximately 1 week ago via normal spontaneous vaginal delivery who comes to the emergency department with a chief complaint of upper abdominal pain rating to her back. The patient states that she heard her baby crying so she got up to go prepare the milk. She was in the kitchen when she had sudden onset lower chest and upper abdominal pain which she rates as 10 out of 10, sharp which radiates to her back. She states that she has never had pain like this before. She denies any injury. She states that she had some shortness of breath and the pain was exacerbated by taking a deep breath. She denies any numbness, tingling, weakness, blurry vision but states that she did feel some mild nausea. She denies any recent travel or recent surgery. She denies any history of prior DVT or PE. She denies any family history of connective tissue disorders. She denies any past medical history including hypertension, CAD, CHF, asthma or COPD. She denies any excessive alcohol use. She denies any diarrhea, hematochezia, hematemesis, bilious emesis or melena. She states that the pain has completely resolved when she got here to the emergency department. She denies any aggravating or relieving factors. She did not try any pain medication prior to arrival REVIEW OF SYSTEMS: Constitutional: Denies fever, chills. Eyes: Denies eye pain Ears, Nose, Mouth, & Throat: Denies earache Cardiovascular: Denies chest pain Respiratory: Positive for shortness of breath Gastrointestinal: Positive for upper abdominal pain and nausea. Denies vomiting, diarrhea, hematochezia. Genitourinary: Denies hematuria Skin:Denies a rash MSK: Positive for back pain Neurological: Denies blurred vision, double vision, loss of vision, numbness, tingling, weakness Psychiatric: Denies depression PAST MEDICAL HISTORY: As per history of present illness and as reviewed below otherwise noncontributory. SURGICAL HISTORY: As per history of present illness and as reviewed below otherwise noncontributory. SOCIAL HISTORY: As per history of present illness and as reviewed below othe rwise noncontributory. FAMILY HISTORY: As per history of present illness and as reviewed below otherwise noncontributory. EXAMINATION OF ORGAN SYSTEMS/BODY AREAS: Constitutional: Blood pressure is 165/75, heart rate 64, respiratory rate 36 with an oxygen saturation of 100% on room air. Temperature 36.6 General: Overall well-appearing woman who is in no acute distress. Psychiatric: Appears mildly anxious but is cooperative. Eyes: No scleral icterus or conjunctival erythema pupils are equal round and reactive to light. Extraocular movements intact. No nystagmus noted. Facies is symmetrical. ENMT: Moist mucous membranes. No pharyngeal erythema tongue protrudes midline. Cardiovascular: Regular, rate, and rhythm. No gallops, murmurs, or rubs. Bilateral upper extremity and lower extremity pulses symmetric and intact. No peripheral edema. No JVD. Respiratory: Lungs clear to auscultation bilaterally. No wheezes, rales, or rhonchi. Gastrointestinal: Soft, non-tender, non-distended. Normoactive bowel sounds no rebound or guarding. Genitourinary: No suprapubic tenderness Musculoskeletal: Normal range of motion. No midline cervical, thoracic, or lumbar tenderness. No paraspinal muscle tenderness. Skin: No lesions or abrasions. Neurological: Alert, GCS 15 strength and sensation grossly intact in upper and lower extremities bilaterally. MEDICAL DECISION MAKING AND COURSE IN THE ED WITH INTERPRETATION/REVIEW OF DIAGNOSTIC STUDIES: This is a 21-year-old woman who recently gave who comes to the emergency department with sudden onset severe sharp upper abdominal pain with radiation to the back associated with shortness of breath and nausea. The patient does not have a history of anxiety or hypertension. She is mildly hypertensive here today at 165/75. We did obtain a screening EKG which did not reveal any acute signs of ischemia. I did discuss with the patient that I would like to obtain a CTA of the chest, abdomen and pelvis to evaluate for aortic dissection. She was amenable to this plan. At this time the patient did not have any further pain therefore we will hold off on pain medication. Will obtain a cardiac work-up including CBC, CMP, lipase given that this could also be pancreatitis, troponin as an atypical presentation of ACS. pediatric psychologist at this time did reveal normal sinus rhythm and pulse oximetry with good waveform was 100 % on room air. Laboratory: CBC is unremarkable. INR is normal. CMP reveals elevated creatinine of 1.2, alkaline phosphatase elevation at 156 and hypoalbuminemia at 3.2 otherwise unremarkable. Lipase is normal at 101. Troponin is negative. After patient returned from CT I did discuss with her I like to obtain a repeat troponin in approximately 1-1/2 to 2 hours. She was amenable to this plan. I did discuss with her regarding her laboratory work-up at this time. The patient was still asymptomatic and her blood pressure and heart rate were normal at the time of my reevaluation. The radiological images were viewed by myself along with reading the report from the radiologist. CTA of the chest, abdomen and pelvis does not reveal any evidence of aortic dissection, aneurysm or other acute abnormality. On reevaluation the patient continued to remain stable and symptom-free. At this time I did discuss with her that we would like to finish the work-up with 1 repeat troponin. It is uncertain as to what is caused this patient's pain as it completely resolved. This could be muscle spasm however typically it does not radiate from the front to the back. However the patient is young and healthy therefore if second troponin is negative I do believe the patient is stable for discharge. Laboratory: Repeat troponin is negative. On reevaluation after repeat troponin the patient continued to remain asymptomatic. I did discuss her at this time it is uncertain as to what caused the patient's pain however it does not appear to be pancreatitis, aortic dissection, pulmonary embolism, ACS. This is likely musculoskeletal or changes to the body after delivery. However if she continues to have this pain I want her to return to the emergency department. She was amenable discharge at this time and had no further questions DISPOSITION: The patient was discharged home in stable condition. The patient will follow up with primary care physician in 3 to 5 days CONDITION: Fair PROCEDURES: None FINAL IMPRESSION(S)/DIAGNOSES: 1. Acute epigastric abdominal pain 2. Acute mid thoracic back pain Yadiel Faulkner M.D. Upper Abdomen Pain Score (Numeric/FACES): 10 - Related Data Allergies Allergy/AdvReac Type Severity Reaction Status Date / Time Penicillins Allergy Other Verified 01/22/21 03:52 Home Meds: Home Meds . 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 History: vaginal delivery 1 wk ago Psychiatric History: Reports: Depression Hematologic History: Reports: None Immunologic History: Reports: None Oncologic (Cancer) History: Reports: None Dermatologic History: Reports: None - Infectious Disease History Infectious Disease History: Reports: Mononucleosis - Past Surgical History Head Surgeries/Procedures: Reports: None HEENT Surgical History: Reports: Tonsillectomy Musculoskeletal Surgical History: Reports: Arthroscopic Knee Social & Family History - Family History Family Medical History: No Pertinent Family History - Tobacco Use Tobacco Use Status *Q: Never Tobacco User Second Hand Smoke Exposure: No - Caffeine Use Caffeine Use: Reports: None - Recreational Drug Use Recreational Drug Use: No ED ROS GENERAL - Review of Systems Review Of Systems: See Below ED EXAM, GENERAL - Physical Exam Exam: See Below Course - Vital Signs Last Recorded V/S: Last Vital Signs Temp 36.6 C 01/22/21 03:40 Pulse 69 01/22/21 07:20 Resp 14 01/22/21 06:53 BP 129/82 01/22/21 07:20 Pulse Ox 97 01/22/21 07:20 - Orders/Labs/Meds Labs: Laboratory Tests 01/22/21 01/22/21 01/22/21 Range/Units 03:40 03:40 03:40 WBC 9.74 (4.0-11.0) K/uL RBC 4.91 (4.30-5.90) M/uL Hgb 15.2 (12.0-16.0) g/dL Hct 44.4 (36.0-46.0) % MCV 90.4 (80.0-98.0) fL MCH 31.0 (27.0-32.0) pg MCHC 34.2 (31.0-37.0) g/dL RDW Std Deviation 42.2 (28.0-62.0) fl RDW Coeff of Cedric 13 (11.0-15.0) % Plt Count 247 (150-400) K/uL MPV 10.90 (7.40-12.00) fL Neut % (Auto) 62.0 (48.0-80.0) % Lymph % (Auto) 27.8 (16.0-40.0) % [place] % (Auto) 7.8 (0.0-15.0) % Eos % (Auto) 2.1 (0.0-7.0) % Baso % (Auto) 0.3 (0.0-1.5) % Neut # (Auto) 6.0 H (1.4-5.7) K/uL Lymph # (Auto) 2.7 H (0.6-2.4) K/uL [place] # (Auto) 0.8 (0.0-0.8) K/uL Eos # (Auto) 0.2 (0.0-0.7) K/uL Baso # (Auto) 0.0 (0.0-0.1) K/uL Nucleated RBC % 0.0 /100WBC Nucleated RBCs # 0 K/uL INR 0.98 Sodium 142 (136-145) mmol/L Potassium 3.7 (3.5-5.1) mmol/L Chloride 104 (98-107) mmol/L Carbon Dioxide 25.7 (21.0-32.0) mmol/L BUN 14 (7.0-18.0) mg/dL Creatinine 1.2 H (0.6-1.0) mg/dL Est Cr Clr Drug Dosing TNP Estimated GFR (MDRD) 56.2 ml/min Glucose 105 (74-106) mg/dL Calcium 9.1 (8.5-10.1) mg/dL Magnesium 2.3 (1.8-2.4) mg/dL Total Bilirubin 0.2 (0.2-1.0) mg/dL AST 17 (15-37) IU/L ALT 20 (14-63) IU/L Alkaline Phosphatase 156 H (46-116) U/L Troponin I (0.000-0.056) ng/mL Total Protein 7.2 (6.4-8.2) g/dL Albumin 3.2 L (3.4-5.0) g/dL Globulin 4.0 (2.6-4.0) g/dL Albumin/Globulin Ratio 0.8 L (0.9-1.6) Lipase 101 (73-393) U/L 01/22/21 01/22/21 Range/Units 03:40 06:30 WBC (4.0-11.0) K/uL RBC (4.30-5.90) M/uL Hgb (12.0-16.0) g/dL Hct (36.0-46.0) % MCV (80.0-98.0) fL MCH (27.0-32.0) pg MCHC (31.0-37.0) g/dL RDW Std Deviation (28.0-62.0) fl RDW Coeff of Cedric (11.0-15.0) % Plt Count (150-400) K/uL MPV (7.40-12.00) fL Neut % (Auto) (48.0-80.0) % Lymph % (Auto) (16.0-40.0) % [place] % (Auto) (0.0-15.0) % Eos % (Auto) (0.0-7.0) % Baso % (Auto) (0.0-1.5) % Neut # (Auto) (1.4-5.7) K/uL Lymph # (Auto) (0.6-2.4) K/uL [place] # (Auto) (0.0-0.8) K/uL Eos # (Auto) (0.0-0.7) K/uL Baso # (Auto) (0.0-0.1) K/uL Nucleated RBC % /100WBC Nucleated RBCs # K/uL INR Sodium (136-145) mmol/L Potassium (3.5-5.1) mmol/L Chloride (98-107) mmol/L Carbon Dioxide (21.0-32.0) mmol/L BUN (7.0-18.0) mg/dL Creatinine (0.6-1.0) mg/dL Est Cr Clr Drug Dosing Estimated GFR (MDRD) ml/min Glucose (74-106) mg/dL Calcium (8.5-10.1) mg/dL Magnesium (1.8-2.4) mg/dL Total Bilirubin (0.2-1.0) mg/dL AST (15-37) IU/L ALT (14-63) IU/L Alkaline Phosphatase (46-116) U/L Troponin I < 0.050 < 0.050 (0.000-0.056) ng/mL Total Protein (6.4-8.2) g/dL Albumin (3.4-5.0) g/dL Globulin (2.6-4.0) g/dL Albumin/Globulin Ratio (0.9-1.6) Lipase (73-393) U/L Meds: Medications Discontinued Medications Generic Name Dose Route Start Last Admin Trade Name Loc PRN Reason Stop Dose Admin Iopamidol 100 ml 01/22/21 04:02 01/22/21 04:27 Iopamidol 755 Mg/Ml 100 Ml Bottle IVPUSH 01/22/21 04:03 100 ml ONETIME ONE Administration Departure - Departure Time of Disposition: 07:06 Disposition: Home, Self-Care 01 Condition: Fair Clinical Impression: Acute abdominal pain, Acute back pain - Discharge Information *PRESCRIPTION DRUG MONITORING PROGRAM REVIEWED*: No *COPY OF PRESCRIPTION DRUG MONITORING REPORT IN PATIENT SARAH: No Instructions: Acute Back Pain, Adult, Abdominal Pain, Adult, [id number], Nonspecific Chest Pain, Adult, [id number] Referrals: PCP,None [Primary Care Provider] - Forms: ED Department Discharge Additional Instructions: Your evaluated today on an emergent basis. At this time all of your work-up was negative. It is uncertain as to what is causing the pain however it has resolved and your vitals have remained normal. I would like you to follow-up with primary care physician in 2 to 3 days. If you have recurrence of the symptoms, passout, have any vomiting, sweating I would like you to return to the emergency department. [facility] - Primary Care [address] [place] [address] [place] [address] The patient is informed of any results of their evaluation and diagnostic workup and all questions are answered. They are given discharge instructions and return precautions. The patient is stable for discharge. The patient states they understand and agree with the plan and that they will return if their symptoms get worse or if they have any new concerns. The following information is given to patients seen in the emergency department who are being discharged to home. This information is to outline your options for follow-up care. We provide all patients seen in our emergency department with a follow-up referral. The need for follow-up, as well as the timing and circumstances, are variable depending upon the specifics of your emergency department visit. If you don't have a primary care physician on staff, we will provide you with a referral. We always advise you to contact your personal physician following an emergency department visit to inform them of the circumstance of the visit and for follow-up with them and/or the need for any referrals to a consulting specialist. The emergency department will also refer you to a specialist when appropriate. This referral assures that you have the opportunity for follow-up care with a specialist. All of these measure are taken in an effort to provide you with optimal care, which includes your follow-up. Under all circumstances we always encourage you to contact your private physician who remains a resource for coordinating your care. When calling for follow-up care, please make the office aware that this follow-up is from your recent emergency room visit. If for any reason you are refused follow-up, please contact the [facility] Emergency Department at and asked to speak to the emergency department charge nurse. Sepsis Event Note (ED) - Evaluation Sepsis Screening Result: No Definite Risk
--- NOTE | 2021-01-22 06:09 | PCM.EKG ---
#1 Interpretation EKG Date: 01/22/21 Time: 03:43 Rhythm: NSR Rate (Beats/Min): 62 [place]: Normal P-Wave: Present QRS: Normal ST-T: Normal (Twave inversion lead Avl) QT: Normal Comparison: NA - No Prior EKG EKG Interpretation Comments: Sinus Rhythm with nonspecific T wave inversion
--- NOTE | 2021-01-22 06:16 | CT ---
For Patients: As a result of the Century Cures Act, medical imaging exams and procedure reports are released immediately into your electronic medical record. You may view this report before your referring provider. If you have questions, please contact your health care provider. INDICATION: Chest pain. Patient is approximately 1 week . TECHNIQUE: CT aortogram with axial images through the chest without intravenous contrast, and post-contrast axial images through the chest, abdomen and pelvis timed for maximum aortic enhancement. Sagittal and coronal reconstructions. 100 mL [id number] IV. COMPARISON: None. FINDINGS: Aorta: On the noncontrast images, there is no intramural hematoma. On the post-contrast images, the thoracic and abdominal aorta are normal caliber, with no evidence of dissection. 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 Remainder of the exam: Heart size is normal. No pericardial effusion. There is no evidence of an acute pulmonary embolus. No intrathoracic lymphadenopathy is identified. The lungs are essentially clear. There is a trace amount of pleural fluid bilaterally. Liver, gallbladder and bile ducts, pancreas, spleen, adrenal glands and kidneys appear unremarkable. No abnormally dilated bowel to suggest obstruction. Normal appendix. uterus is noted. Unremarkable urinary bladder. No suspicious adnexal mass. No acute bony abnormality. IMPRESSION: 1. No aortic aneurysm or dissection. 2. Trace amount of pleural fluid is seen bilaterally. Dictated by Praveen Bassett MD @ 01/22/2021 6:13:29 AM Please note that all CT scans at this facility use dose modulation, iterative reconstruction, and/or weight-based dosing when appropriate to reduce radiation dose to as low as reasonably achievable. Dictated by: Praveen Bassett MD @ 01/22/2021 06:13:53 (Electronically Signed)
--- NOTE | 2021-01-22 06:16 | CT ---
INDICATION: Chest pain. Patient is approximately 1 week . TECHNIQUE: CT aortogram with axial images through the chest without intravenous contrast, and post-contrast axial images through the chest, abdomen and pelvis timed for maximum aortic enhancement. Sagittal and coronal reconstructions. 100 mL [id number] IV. COMPARISON: None. FINDINGS: Aorta: On the noncontrast images, there is no intramural hematoma. On the post-contrast images, the thoracic and abdominal aorta are normal caliber, with no evidence of dissection. 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 Remainder of the exam: Heart size is normal. No pericardial effusion. There is no evidence of an acute pulmonary embolus. No intrathoracic lymphadenopathy is identified. The lungs are essentially clear. There is a trace amount of pleural fluid bilaterally. Liver, gallbladder and bile ducts, pancreas, spleen, adrenal glands and kidneys appear unremarkable. No abnormally dilated bowel to suggest obstruction. Normal appendix. uterus is noted. Unremarkable urinary bladder. No suspicious adnexal mass. No acute bony abnormality. IMPRESSION: 1. No aortic aneurysm or dissection. 2. Trace amount of pleural fluid is seen bilaterally. Please note that all CT scans at this facility use dose modulation, iterative reconstruction, and/or weight-based dosing when appropriate to reduce radiation dose to as low as reasonably achievable. Dictated by Praveen Bassett MD @ 01/22/2021 6:14:[address] Praveen Bassett @ Jan 22 2021 6:14AM
== END 2021-01-22 07:24 | disposition home or self-care (01) ==
LOC: MW.ED 03:33
DX: R10.13 Epigastric pain (principal); M54.6 Pain in thoracic spine; Z88.0 Allergy status to penicillin
CPT/HCPCS: 36415; 71275; 74174; 80053; 83690; 83735; 84484; 85025; 85610; 93005; 99285; Q9967

== ENCOUNTER 2021-02-02 22:21 | Emergency (ER) | payer OTHER ==
[2021-02-03] MEDS ORDERED: Lactated Ringers 1,000 ML IV ONE (00:15)
[2021-02-03] MEDS ORDERED: Morphine 4 MG/ML Syringe IVPUSH ONE (00:15)
[2021-02-03] MEDS ORDERED: Ondansetron 4 MG/2 ML SDV IVPUSH ONE (00:27)
[2021-02-03 01:03] LABS: BLOOD UREA NITROGEN,BUN 17 mg/dL (7.0-18.0); CHLORIDE,CL 106 mmol/L (98-107); GLUCOSE RANDOM 103 mg/dL (74-106); LIPASE 84 U/L (73-393); SODIUM,NA 141 mmol/L (136-145)
--- NOTE | 2021-02-03 02:43 | US ---
INDICATION: Epigastric pain TECHNIQUE: Ultrasound abdomen limited. Sonographic images of the right upper quadrant were obtained using vasquez-scale and color Doppler images. COMPARISON: None FINDINGS: Liver: Normal in size and echotexture. No masses. No intrahepatic biliary dilatation. Gallbladder: Cholelithiasis without gallbladder wall thickening or pericholecystic inflammation. Common bile duct: 5 mm. Pancreas: Partially obscured by bowel gas without discrete lesion. Right kidney: Normal in size. Normal echotexture and cortex. No masses, stones, or hydronephrosis. IMPRESSION: Cholelithiasis without sonographic evidence of cholecystitis. Dictated by Abram Marks MD @ 02/03/2021 2:41:[address] Abram Marks @ Feb 03 2021 2:41AM
[2021-02-03] MEDS ORDERED: Ibuprofen 600 MG Tab PO ONE (02:53)
--- NOTE | 2021-02-03 03:11 | EDM.PDOC ---
ED HPI GENERAL MEDICAL PROBLEM - General Chief Complaint: Gastrointestinal Problem Stated Complaint: POSSIBLE GALLSTONES Time Seen by Provider: 02/02/21 23:08 - History of Present Illness INITIAL COMMENTS - FREE TEXT/NARRATIVE: CHIEF COMPLAINT(S): Abdominal pain HISTORY OF PRESENT ILLNESS: This is a 21-year-old woman without any significant past medical history who presents to the emergency department with right upper quadrant abdominal pain. The patient states that since being discharged last time she followed up with her primary care physician and they did an outpatient ultrasound earlier this week which did reveal a gallbladder with gallstones. She states that since that time she has had recurrent right upper quadrant abdominal pain that worsens after she eats. She states that the pain is 7 out of 10 and sharp. She denies any radiation of this pain. She denies any nausea, vomiting, fever, diarrhea, melena, hematemesis or bilious emesis. She states that nothing seems to relieve the pain. She has not yet tried any pain medication. She denies any aggravating factors other than eating. She states that she was to get a call from general surgery however she has not received a call yet and given the pain she decided to come to the emergency department. REVIEW OF SYSTEMS: Constitutional: Denies fever, chills. Eyes: Denies eye pain Ears, Nose, Mouth, & Throat: Denies earache Cardiovascular: Denies chest pain Respiratory: Denies shortness of breath Gastrointestinal: Positive for right upper quadrant abdominal pain. Denies nausea, vomiting, diarrhea, hematochezia, hematemesis, bilious emesis Genitourinary: Denies hematuria Skin:Denies a rash MSK: Denies joint pain Neurological: Denies blurred vision Psychiatric: Denies depression PAST MEDICAL HISTORY: As per history of present illness and as reviewed below otherwise noncontributory. SURGICAL HISTORY: As per history of present illness and as reviewed below otherwise noncontributory. SOCIAL HISTORY: As per history of present illness and as reviewed below otherwise noncontributory. FAMILY HISTORY: As per history of present illness and as reviewed below otherwise noncontributory. EXAMINATION OF ORGAN SYSTEMS/BODY AREAS: Constitutional: Heart rate 91, respiratory rate 17 with an oxygen saturation 97% on room air. Temperature 36.5. Blood pressure 121/79 General: Young woman who appears to be in a mild amount of pain. Psychiatric: Appropriate mood and affect. Eyes: No scleral icterus or conjunctival erythema ENMT: Moist mucous membranes. No pharyngeal erythema Cardiovascular: Regular, rate, and rhythm. No gallops, murmurs, or rubs. Bilateral upper extremity pulses symmetric and intact. No peripheral edema. No JVD. Respiratory: Lungs clear to auscultation bilaterally. No wheezes, rales, or rhonchi. Gastrointestinal: Soft, nondistended, tenderness to palpation in the right upper quadrant and epigastric region. Normoactive bowel sounds. Positive Pathak's. Negative McBurney's. Genitourinary: No suprapubic tenderness no CVA tenderness Musculoskeletal: Normal range of motion. Skin: No lesions or abrasions. Neurological: Alert, GCS 15 MEDICAL DECISION MAKING AND COURSE IN THE ED WITH INTERPRETATION/REVIEW OF DIAGNOSTIC STUDIES: This is a 21-year-old woman with a known diagnosis of cholelithiasis who comes to the emergency department with exacerbation of pain in the right upper quadrant region who has normal vital signs. Patient does have a positive Pathak's at this time. Will obtain labs including CBC, CMP, lipase. Will obtain a urinalysis and an hCG. We will obtain a right upper quadrant ultrasound to evaluate for cholecystitis. I did provide the patient with 1 L of lactated Ringer's bolus, 4 mg of IV morphine and 4 mg of IV Zofran. We will reevaluate. Laboratory: CBC is unremarkable. CMP reveals mild elevation in creatinine at 1.1, AST of 39, ALT of 173 and alkaline phosphatase of 236 this is up from prior. Lipase is normal. Urinalysis was a clean catch and was moderate for leukocyte esterase, negative for nitrites, and moderate for blood. 5-10 WBCs, few bacteria interpretation: Hematuria The radiological images were viewed by myself along with reading the report from the radiologist. Right upper quadrant abdominal ultrasound reveals cholelithiasis without evidence of cholecystitis. After imaging I did contact general surgeon Dr. Saini who recommended that she follow-up today in the surgery clinic. He does not recommend surgical intervention at this time. I did discuss this with the patient and she was amenable to this plan and had no further questions. She is to return for any worsening of her symptoms. DISPOSITION: The patient was discharged home in stable condition. The patient will follow up with surgery today CONDITION: Good PROCEDURES: None FINAL IMPRESSION(S)/DIAGNOSES: 1. Acute symptomatic cholelithiasis Yadiel Faulkner M.D. Middle Abdomen Pain Score (Numeric/FACES): 7 - Related Data Allergies Allergy/AdvReac Type Severity Reaction Status Date / Time Penicillins Allergy Other Verified 02/02/21 23:00 Home Meds: Home Meds . 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 UNLOADER History: vaginal delivery 1 wk ago Psychiatric History: Reports: Depression Hematologic History: Reports: None Immunologic History: Reports: None Oncologic (Cancer) History: Reports: None Dermatologic History: Reports: None - Infectious Disease History Infectious Disease History: Reports: Mononucleosis - Past Surgical History Head Surgeries/Procedures: Reports: None HEENT Surgical History: Reports: Tonsillectomy Musculoskeletal Surgical History: Reports: Arthroscopic Knee Social & Family History - Family History Family Medical History: No Pertinent Family History - Tobacco Use Tobacco Use Status *Q: Never Tobacco User - Caffeine Use Caffeine Use: Reports: Coffee ED ROS GENERAL - Review of Systems Review Of Systems: See Below ED EXAM, GENERAL - Physical Exam Exam: See Below Course - Vital Signs Last Recorded V/S: Last Vital Signs Temp 36.5 C 02/02/21 23:00 Pulse 79 02/03/21 03:15 Resp 16 02/03/21 03:15 BP 123/49 L 02/03/21 03:15 Pulse Ox 97 02/03/21 03:15 - Orders/Labs/Meds Labs: Laboratory Tests 02/02/21 02/02/21 02/03/21 Range/Units 23:35 23:35 00:24 WBC 8.96 (4.0-11.0) K/uL RBC 4.75 (4.30-5.90) M/uL Hgb 14.5 (12.0-16.0) g/dL Hct 43.3 (36.0-46.0) % MCV 91.2 (80.0-98.0) fL MCH 30.5 (27.0-32.0) pg MCHC 33.5 (31.0-37.0) g/dL RDW Std Deviation 40.6 (28.0-62.0) fl RDW Coeff of Cedric 12 (11.0-15.0) % Plt Count 206 (150-400) K/uL MPV 11.40 (7.40-12.00) fL Neut % (Auto) 56.0 (48.0-80.0) % Lymph % (Auto) 32.8 (16.0-40.0) % [place] % (Auto) 7.3 (0.0-15.0) % Eos % (Auto) 3.3 (0.0-7.0) % Baso % (Auto) 0.6 (0.0-1.5) % Neut # (Auto) 5.0 (1.4-5.7) K/uL Lymph # (Auto) 2.9 H (0.6-2.4) K/uL [place] # (Auto) 0.7 (0.0-0.8) K/uL Eos # (Auto) 0.3 (0.0-0.7) K/uL Baso # (Auto) 0.1 (0.0-0.1) K/uL Sodium (136-145) mmol/L Potassium (3.5-5.1) mmol/L Chloride (98-107) mmol/L Carbon Dioxide (21.0-32.0) mmol/L BUN (7.0-18.0) mg/dL Creatinine (0.6-1.0) mg/dL Est Cr Clr Drug Dosing mL/min Estimated GFR (MDRD) ml/min Glucose (74-106) mg/dL Calcium (8.5-10.1) mg/dL Total Bilirubin (0.2-1.0) mg/dL AST (15-37) IU/L ALT (14-63) IU/L Alkaline Phosphatase (46-116) U/L Total Protein (6.4-8.2) g/dL Albumin (3.4-5.0) g/dL Globulin (2.6-4.0) g/dL Albumin/Globulin Ratio (0.9-1.6) Lipase (73-393) U/L Urine Color YELLOW Urine Appearance SLT CLOUDY Urine pH 5.5 (5.0-8.0) Ur Specific [place] 1.025 (1.001-1.035) Urine Protein NEGATIVE (NEGATIVE) mg/dL Urine Glucose (UA) NEGATIVE (NEGATIVE) mg/dL Urine Ketones NEGATIVE (NEGATIVE) mg/dL Urine Occult Blood MODERATE H (NEGATIVE) Urine Nitrite NEGATIVE (NEGATIVE) Urine Bilirubin NEGATIVE (NEGATIVE) Urine Urobilinogen 0.2 (<2.0) EU/dL Ur Leukocyte Esterase MODERATE H (NEGATIVE) Urine RBC 0-3 (0-2/HPF) Urine WBC 5-10 (0-5/HPF) Ur Epithelial Cells FEW (NONE-FEW) Urine Bacteria FEW (NEGATIVE) Urine HCG, Qual NEGATIVE (NEGATIVE) 02/03/21 Range/Units 00:24 WBC (4.0-11.0) K/uL RBC (4.30-5.90) M/uL Hgb (12.0-16.0) g/dL Hct (36.0-46.0) % MCV (80.0-98.0) fL MCH (27.0-32.0) pg MCHC (31.0-37.0) g/dL RDW Std Deviation (28.0-62.0) fl RDW Coeff of Cedric (11.0-15.0) % Plt Count (150-400) K/uL MPV (7.40-12.00) fL Neut % (Auto) (48.0-80.0) % Lymph % (Auto) (16.0-40.0) % [place] % (Auto) (0.0-15.0) % Eos % (Auto) (0.0-7.0) % Baso % (Auto) (0.0-1.5) % Neut # (Auto) (1.4-5.7) K/uL Lymph # (Auto) (0.6-2.4) K/uL [place] # (Auto) (0.0-0.8) K/uL Eos # (Auto) (0.0-0.7) K/uL Baso # (Auto) (0.0-0.1) K/uL Sodium 141 (136-145) mmol/L Potassium 4.0 (3.5-5.1) mmol/L Chloride 106 (98-107) mmol/L Carbon Dioxide 25.0 (21.0-32.0) mmol/L BUN 17 (7.0-18.0) mg/dL Creatinine 1.1 H (0.6-1.0) mg/dL Est Cr Clr Drug Dosing 72.19 mL/min Estimated GFR (MDRD) > 60.0 ml/min Glucose 103 (74-106) mg/dL Calcium 9.0 (8.5-10.1) mg/dL Total Bilirubin 0.3 (0.2-1.0) mg/dL AST 39 H (15-37) IU/L ALT 173 H (14-63) IU/L Alkaline Phosphatase 236 H (46-116) U/L Total Protein 6.7 (6.4-8.2) g/dL Albumin 3.4 (3.4-5.0) g/dL Globulin 3.3 (2.6-4.0) g/dL Albumin/Globulin Ratio 1.0 (0.9-1.6) Lipase 84 (73-393) U/L Urine Color Urine Appearance Urine pH (5.0-8.0) Ur Specific [place] (1.001-1.035) Urine Protein (NEGATIVE) mg/dL Urine Glucose (UA) (NEGATIVE) mg/dL Urine Ketones (NEGATIVE) mg/dL Urine Occult Blood (NEGATIVE) Urine Nitrite (NEGATIVE) Urine Bilirubin (NEGATIVE) Urine Urobilinogen (<2.0) EU/dL Ur Leukocyte Esterase (NEGATIVE) Urine RBC (0-2/HPF) Urine WBC (0-5/HPF) Ur Epithelial Cells (NONE-FEW) Urine Bacteria (NEGATIVE) Urine HCG, Qual (NEGATIVE) Meds: Medications Discontinued Medications Generic Name Dose Route Start Last Admin Trade Name Freq PRN Reason Stop Dose Admin Lactated Ringer's 1,000 mls @ 999 mls/hr 02/03/21 00:15 02/03/21 00:32 Ringers, Lactated IV 02/03/21 01:15 999 mls/hr .BOLUS ONE Administration Ibuprofen 600 mg 02/03/21 02:53 02/03/21 03:12 Ibuprofen 600 Mg Tab PO 02/03/21 02:54 600 mg ONETIME ONE Administration Morphine Sulfate 4 mg 02/03/21 00:15 02/03/21 00:33 Morphine 4 Mg/Ml Syringe IVPUSH 02/03/21 00:16 4 mg ONETIME ONE Administration Ondansetron HCl 4 mg 02/03/21 00:27 02/03/21 00:33 Ondansetron 4 Mg/2 Ml Sdv IVPUSH 02/03/21 00:28 4 mg ONETIME ONE Administration Departure - Departure Time of Disposition: 03:11 Disposition: Home, Self-Care 01 Condition: Fair Clinical Impression: Cholelithiasis without obstruction - Discharge Information Instructions: Cholelithiasis Referrals: Yina Pro MD [Primary Care Provider] - Forms: ED Department Discharge Additional Instructions: You were evaluated today on an emergent basis. At this time your ultrasound and labs do not indicate an infection of your gallbladder. You do have gallstones and there however does not appear to be inflamed. As discussed because you are having recurrent pain in the morning we will contact the surgery clinic to schedule appointment today. If you have any worsening pain, fever, inability to tolerate fluids I would like you to return to the emergency department. Otherwise look out for a call in the morning for an appointment time. [facility] [place] - General Surgery [address], [address] [place] [address] The patient is informed of any results of their evaluation and diagnostic workup and all questions are answered. They are given discharge instructions and return precautions. The patient is stable for discharge. The patient states they understand and agree with the plan and that they will return if their symptoms get worse or if they have any new concerns. The following information is given to patients seen in the emergency department who are being discharged to home. This information is to outline your options for follow-up care. We provide all patients seen in our emergency department with a follow-up referral. The need for follow-up, as well as the timing and circumstances, are variable depending upon the specifics of your emergency department visit. If you don't have a primary care physician on staff, we will provide you with a referral. We always advise you to contact your personal physician following an emergency department visit to inform them of the circumstance of the visit and for follow-up with them and/or the need for any referrals to a consulting specialist. The emergency department will also refer you to a specialist when appropriate. This referral assures that you have the opportunity for follow-up care with a specialist. All of these measure are taken in an effort to provide you with optimal care, which includes your follow-up. Under all circumstances we always encourage you to contact your private physician who remains a resource for coordinating your care. When calling for follow-up care, please make the office aware that this follow-up is from your recent emergency room visit. If for any reason you are refused follow-up, please contact the Emergency Department at and asked to speak to the emergency department charge nurse. Sepsis Event Note (ED) - Evaluation Sepsis Screening Result: No Definite Risk
== END 2021-02-03 03:24 | disposition home or self-care (01) ==
LOC: MW.ED 22:21
DX: K80.20 Calculus of gallbladder without cholecystitis without obstruction (principal); Z88.0 Allergy status to penicillin
CPT/HCPCS: 36415; 76705; 80053; 81001; 81025; 83690; 85025; 96374; 96375; 99284; A9270; J2270; J2405; J7120; 99283

== ENCOUNTER 2021-02-07 09:58 | Day surgery (SDC) | payer OTHER ==
[~2021-02-07 09:58] MED LIST: Bupivacaine 0.5% 10 ML SDV ONE; Dexamethasone 4 MG/ML 5 ML MDV ONE; Lactated Ringers 1,000 ML IV SCH; Lidocaine 2% 5 ML SDV ONE; Midazolam 1 MG/ML 2 ML SDV ONE; Ondansetron 4 MG/2 ML SDV ONE; Propofol 200 MG/20 ML SDV ONE; Rocuronium Bromide 50 MG/5 ML Syringe ONE; Sugammadex Sodium 200 MG/2 ML VIAL ONE; ceFAZolin 2 GM in Premix Bag 1 BAG IV ONE; fentaNYL 100 MCG/2 ML SDV ONE
--- NOTE | 2021-02-07 10:27 | PCM.PREANE ---
Preanesthetic Assessment - Anesthesia/Transfusion/Family Hx Anesthesia History: Prior Anesthesia Without Reaction Transfusion History: No Prior Transfusion(s) - Physical Assessment NPO Status Date: 02/06/21 NPO Status Time: 17:00 Vital Signs: Last Vital Signs Temp 97.2 F 02/07/21 10:00 Pulse 84 02/07/21 10:00 Resp 16 02/07/21 10:00 BP 114/68 02/07/21 10:00 Pulse Ox 97 02/07/21 10:00 Height: 5 ft 5 in Weight: 87.09 kg ASA Class: 2 Airway Class: Mallampati = 2 Thyro-Mental Finger Breadths: 3 Mouth Opening Finger Breadths: 3 - Allergies Allergies/Adverse Reactions: Allergies Allergy/AdvReac Type Severity Reaction Status Date / Time Penicillins Allergy Rash Verified 02/06/21 09:17 - Acknowledgements Anesthesia Type Planned: General Anesthesia Pt an Appropriate Candidate for the Planned Anesthesia: Yes Alternatives and Risks of Anesthesia Discussed w Pt/Guardian: Yes Pt/Guardian Understands and Agrees with Anesthesia Plan: Yes PreAnesthesia Questionnaire - Past Health History Medical/Surgical History: Denies Medical/Surgical History HEENT History: Reports: None Cardiovascular History: Reports: None Respiratory History: Reports: None Gastrointestinal History: Reports: Cholelithiasis Genitourinary History: Reports: UTI, Recurrent 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 OB/BYN History: vaginal delivery approx 3 weeks ago Musculoskeletal History: Reports: Fracture Other Musculoskeletal History: hx fx foot Neurological History: Reports: None Psychiatric History: Reports: Depression Endocrine/Metabolic History: Reports: Obesity/BMI 30+ Hematologic History: Reports: None Immunologic History: Reports: None Oncologic (Cancer) History: Reports: None Dermatologic History: Reports: None - Infectious Disease History Infectious Disease History: Reports: Mononucleosis - Past Surgical History Head Surgeries/Procedures: Reports: None HEENT Surgical History: Reports: Tonsillectomy Cardiovascular Surgical History: Reports: None Respiratory Surgical History: Reports: None GI Surgical History: Reports: None Female Surgical History: Reports: None Endocrine Surgical History: Reports: None Neurological Surgical History: Reports: None Musculoskeletal Surgical History: Reports: Arthroscopic Knee Oncologic Surgical History: Reports: None - SUBSTANCE USE Tobacco Use Status *Q: Former Tobacco User Tobacco Use Within Last Twelve Months: Cigarettes - HOME MEDS Home Medications: Home Meds Hydrocodone/Acetaminophen [HYDROcodone-Acetaminophen 5-325 MG] 1 tab PO ASDIRECTED PRN 02/06/21 [History] - CURRENT (IN HOUSE) MEDS Current Meds: Current Medications Lactated Ringer's (Ringers, Lactated) 1,000 mls @ 125 mls/hr IV ASDIRECTED ARA Lactated Ringer's (Ringers, Lactated) 1,000 mls @ 125 mls/hr IV ASDIRECTED ARA Clindamycin Phosphate 600 mg/ (Premix) 50 mls @ 100 mls/hr IV ONETIME ONE Stop: 02/07/21 12:29 Discontinued Medications Bupivacaine HCl (Bupivacaine 0.5% 10 Ml Sdv) Confirm Administered Dose 20 ml .ROUTE .STK-MED ONE Stop: 02/07/21 08:42 Dexamethasone (Dexamethasone 4 Mg/Ml 5 Ml Mdv) Confirm Administered Dose 60 mg .ROUTE .STK-MED ONE Stop: 02/07/21 09:05 Fentanyl (Fentanyl 100 Mcg/2 Ml Sdv) Confirm Administered Dose 100 mcg .ROUTE .STK-MED ONE Stop: 02/07/21 09:05 Cefazolin Sodium/Dextrose 2 gm (/ Premix) 50 mls @ 100 mls/hr IV ONETIME ONE Stop: 02/06/21 14:30 Lidocaine (Lidocaine 2% 5 Ml Sdv) Confirm Administered Dose 5 ml .ROUTE .STK-MED ONE Stop: 02/07/21 09:05 Midazolam HCl (Midazolam 1 Mg/Ml 2 Ml Sdv) Confirm Administered Dose 2 mg .ROUTE .STK-MED ONE Stop: 02/07/21 09:05 Ondansetron HCl (Ondansetron 4 Mg/2 Ml Sdv) Confirm Administered Dose 4 mg .ROUTE .STK-MED ONE Stop: 02/07/21 09:05 Propofol (Propofol 200 Mg/20 Ml Sdv) Confirm Administered Dose 200 mg .ROUTE .STK-MED ONE Stop: 02/07/21 09:05 Rocuronium [place] (Rocuronium [place] 50 Mg/5 Ml Syringe) Confirm Administered Dose 50 mg .ROUTE .STK-MED ONE Stop: 02/07/21 09:05 Sugammadex Sodium (Sugammadex Sodium 200 Mg/2 Ml Vial) Confirm Administered Dose 200 mg .ROUTE .STK-MED ONE Stop: 02/07/21 09:05
[2021-02-07] MEDS ORDERED: Naloxone 0.4 MG/ML Syringe IVPUSH PRN (10:28)
[2021-02-07] MEDS ORDERED: Albuterol 0.083% 2.5 MG/3 ML Neb Soln NEB PRN (10:28)
[2021-02-07] MEDS ORDERED: HYDROmorphone 2 MG/ML Syringe IVPUSH PRN (10:28)
[2021-02-07] MEDS ORDERED: Metoclopramide 10 MG/2 ML SDV IVPUSH PRN (10:28)
[2021-02-07] MEDS ORDERED: Morphine 2 MG/ML SYRINGE IVPUSH PRN (10:28)
[2021-02-07] MEDS ORDERED: Ondansetron 4 MG/2 ML SDV IVPUSH PRN (10:28)
[2021-02-07] MEDS ORDERED: Clindamycin Phosphate in D5W 600 MG in Premix Bag 1 BAG IV ONE ×2 (11:00)
[2021-02-07] MEDS ORDERED: ePHEDrine 50 MG/ML SDV ONE (11:51)
[2021-02-07] MEDS ORDERED: Sodium Chloride 0.9% 20 ML ONE (12:00)
[2021-02-07] MEDS ORDERED: fentaNYL 100 MCG/2 ML SDV ONE (12:04)
[2021-02-07] MEDS ORDERED: Octyl 2-Cyanoacrylate 1 Tube ONE (12:28)
[2021-02-07] MEDS ORDERED: Ketorolac 30 MG/ML SDV ONE (12:29)
--- NOTE | 2021-02-07 12:45 | PCM.OPNOTE ---
- General Post-Op/Procedure Note Date of Surgery/Procedure: 02/07/21 Operative Procedure(s): Laparoscopic cholecystectomy Findings: Normal appearing gallbladder Pre Op Diagnosis: Symptomatic cholelithiasis Post-Op Diagnosis: same Anesthesia Technique: General ET Tube Primary Surgeon: Delia Lowe Fluid Replacement, Intraop: 700 Output, Urine Amount: 100 EBL in mLs: 10 Condition: Good
--- NOTE | 2021-02-07 12:59 | PCM.POSTAN ---
POST ANESTHESIA ASSESSMENT - VITAL SIGNS Vital Signs: Last Vital Signs Temp 97.2 F 02/07/21 10:00 Pulse 84 02/07/21 10:00 Resp 16 02/07/21 10:00 BP 114/68 02/07/21 10:00 Pulse Ox 97 02/07/21 10:00
--- NOTE | 2021-02-07 13:00 | PCM48HPAN ---
Post Anesthesia Note - EVALUATION WITHIN 48HRS OF ANESTHETIC Vital Signs in Normal Range: Yes Patient Participated in Evaluation: Yes Respiratory Function Stable: Yes Airway Patent: Yes Cardiovascular Function Stable: Yes Hydration Status Stable: Yes Pain Control Satisfactory: Yes Nausea and Vomiting Control Satisfactory: Yes Mental Status Recovered: Yes Vital Signs: Last Vital Signs Temp 97.2 F 02/07/21 10:00 Pulse 84 02/07/21 10:00 Resp 16 02/07/21 10:00 BP 114/68 02/07/21 10:00 Pulse Ox 97 02/07/21 10:00
[2021-02-07] MEDS: fentaNYL 100 MCG/2 ML SDV IVPUSH PRN ×2 (13:17→13:23)
[2021-02-07] MEDS ORDERED: Acetaminophen/oxyCODONE 325-5 MG Tab PO PRN (14:50)
--- NOTE | 2021-02-07 16:47 | OR ---
SURGEON: DELIA LOWE MD DATE OF PROCEDURE: 02/07/2021 PREOPERATIVE DIAGNOSIS: Symptomatic cholelithiasis. POSTOPERATIVE DIAGNOSIS: Symptomatic cholelithiasis. PROCEDURE PERFORMED: Laparoscopic cholecystectomy. PRIMARY SURGEON: Delia Lowe MD ANESTHESIA: General endotracheal anesthesia. FLUIDS: 700 mL crystalloid. ESTIMATED BLOOD LOSS: 10 mL. URINE OUTPUT: 100 mL. FINDINGS: Normal-appearing gallbladder. COMPLICATIONS: None. INDICATIONS: The patient is a 21-year-old female who presented to the emergency room with abdominal pain. Workup revealed symptomatic cholelithiasis. The patient and I discussed the pathophysiology of biliary disease. I explained the need for a cholecystectomy to treat symptomatic cholelithiasis. I would attempt this laparoscopically, but convert to open should I be unable to perform it safely. I explained the expected perioperative course, and the risks. The patient verbalized understanding and wishes to proceed. PROCEDURE IN DETAIL: The patient was brought in to the OR and placed on the OR table in supine position. A time-out was completed verifying the patient's name, age, date of , allergies, and procedure to be performed. The left arm was tucked at the patient's side and a Pierre catheter placed. The abdomen was prepped and draped in usual standard fashion. I anesthetized the infraumbilical fold with 0.5% Marcaine plain. An 11-blade was used to make an incision along the infraumbilical fold. Cautery was used to dissect down to the level of subcutaneous fat. I bluntly dissected down to the fascia. The fascia was elevated with Kochers and incised sharply with the Metzenbaum scissors. The peritoneum was grasped with hemostats, elevated, and incised sharply as well. Entry into the abdomen was palpated digitally. Stay sutures were placed on either side of the fascia using 0 Vicryl sutures and a 12 mm Imer trocar was inserted. The abdomen was insufflated and a 5 mm 30-degree scope was inserted. I inspected the area underneath my initial trocar placement. No damage to surrounding structures was noted. The patient was placed into reverse Trendelenburg position and airplaned slightly to the left. 5 mm trocars were placed under direct visualization at the following locations; one in the epigastric area, one in the right flank, and one 2 fingerbreadths below the right subcostal margin in the midclavicular line. The dome of the gallbladder was grasped and elevated. There were no adhesions to the surrounding structures. Using blunt dissection as well as hook cautery, I took down the attachments around the cystic duct and artery. I then dissected the gallbladder off the cystic plate along the proximal third of the cystic plate. The node of Calot was identified. Once my critical view was achieved, a photograph was taken. I doubly clipped and ligated the cystic duct and artery. The remainder of the gallbladder attachments to the cystic plate were taken down using hook cautery. The gallbladder was then placed in an EndoCatch bag and removed through the infraumbilical port site. I inspected my operative field. It appeared to be hemostatic and there was no evidence of bile leakage. A photograph of this was taken. The 5 mm trocars were removed under direct visualization, the abdomen allowed to desufflate. The fascia at the infraumbilical port site was closed with interrupted 0 Vicryl sutures. The subcutaneous fat layer was closed with interrupted 3-0 Vicryl sutures. The skin was closed with a running 4-0 Monocryl stitch. The 5 mm trocar sites were closed with interrupted 4-0 Monocryl sutures. Dermabond and sterile dressings were applied. The patient tolerated the procedure well and was transferred to the PACU in stable condition. All counts were complete and correct at the end of the case. PENNY GARY /[id number]
== END 2021-02-07 15:00 | disposition home or self-care (01) ==
LOC: MW.SDS 09:58
PROVIDERS: ATTEND Surgery
DX: K80.10 Calculus of gallbladder with chronic cholecystitis without obstruction (principal); E66.9 Obesity, unspecified; Z68.32 Body mass index [BMI] 32.0-32.9, adult; Z88.0 Allergy status to penicillin
CPT/HCPCS: 47562; 81025; 88305; A9270; J0131; J1100; J1885; J2250; J2704; J3010; J3490; J7120; 00790; J2405